=== PATIENT | female | born 1955 | race Caucasian/White ===

== ENCOUNTER 2016-07-16 10:14 | Inpatient (IN) | payer BC ==
--- NOTE | ~2016-07-16 | DS ---
Discharge Summary [facility] [address] [place]. [address] NAME: RAMILA SCANLON : 57 STATUS : ADM IN [facility]#: [id number] AGE: 61 ADM/REG DATE : 07/16/16 MR#: [id number] REPORT SERV DATE: 07/31/16 DICTATED BY: Ace CANCINO DATE: 07/31/16 REPORT STATUS : Draft TRANSCRIBED BY: MODL DATE: 07/31/16 ADMISSION DATE: 07/16/2016 DISCHARGE DATE: 07/31/2016 DIAGNOSES AT THE TIME OF DISCHARGE: Aortic valve endocarditis status post aortic valve replacement, culture equals and Enterococcus, severe chronic obstructive pulmonary disease, prior embolic cerebrovascular accidents, coronary artery disease; acute kidney injury, resolved; superficial thrombus, right arm. ACTIVE CONSULTATIONS: Infectious Disease, Cardiology. PROCEDURE SINCE INTERIM SUMMARY: None. For details of earlier hospital stay, please see interim summary dictated by Dr. Julissa Morrell, done on 07/30/2016. HOSPITAL STAY: On 07/31/2016, the patient has been cleared for discharge by Cardiology, Hospitalist Service, and ID; seen and evaluated by Physical Therapy. The patient was at her functional baseline and stable for discharge home. She is to be stable to discharge to ongoing senior care facility for rehabilitation and antimicrobial therapy. The patient will continue with her current antibiotics in the form of ampicillin 2 g q.4 hours and ceftriaxone 2 g q.12 hours with weekly lab work in the form of CBC and twice weekly lab work in the form of CMP, to be followed by Dr. Villar. The patient will have outpatient followup with Neurology, Cardiology, and Infectious Disease. She will transition today to senior care for ongoing medical therapy. DISCHARGE MEDICATIONS: Will be the above-mentioned antibiotics, vitamin C 1000 b.i.d., aspirin 81 daily, Lipitor 40 daily, arformoterol one inhalation b.i.d., budesonide one inhalation b.i.d., folic acid 1 mg daily, Lasix 40 p.o. q.a.m., melatonin 3 mg at bedtime, multivitamin 1 daily, metoprolol 12.5 b.i.d., Protonix 40 mg p.o. daily, MiraLAX one daily, Seroquel 50 b.i.d., Spiriva 18 mcg daily, Coumadin 4 mg daily with PT and INR on Mondays, Wednesdays, and Fridays, and zinc sulfate 220 mg daily. Further recommendations for ongoing treatment pending review of pending lab data and outpatient followup with Neurology, Cardiology, and Infectious Disease. Please note that it took greater than 30 minutes to review medical record, to reconcile discharge medications and prepare discharge documents. [facility]/ALOK Ace Cancino M.D. / [id number] Discharge Summary [address] [place]. [address] NAME: RAMILA SCANLON ELIZABETH : 57 STATUS : ADM IN [facility]#: [id number] AGE: 61 ADM/REG DATE : 07/16/16 MR#: [id number] REPORT SERV DATE: 07/31/16 DICTATED BY: Ace CANCINO DATE: 07/31/16 REPORT STATUS : Draft TRANSCRIBED BY: ALOK DATE: 07/31/16 CC: Carlton Rodriguez MD
--- NOTE | ~2016-07-16 | CN ---
Consultation Report [facility] [address] [place]. [address] NAME: RAMILA SCANLON : 57 STATUS : ADM IN [facility]#: [id number] AGE: 61 ADM/REG DATE : 07/16/16 MR#: [id number] REPORT SERV DATE: 07/18/16 DICTATED BY: MAXIMILIANO ANTOINE DATE: 07/17/16 REPORT STATUS : Draft TRANSCRIBED BY: MODL DATE: 07/17/16 CARDIOLOGY CONSULTATION DATE OF CONSULTATION: 07/17/2016 REASON FOR CONSULTATION: Abnormal echocardiogram, heart failure. HISTORY OF PRESENT ILLNESS: Ms. Scanlon is a 61-year-old female whom we have been asked to see by the Critical Care Service urgently for the patient recently transferred with findings suggestive of acute heart failure with severe aortic regurgitation. The patient was admitted yesterday on 07/16/2016 after presenting initially with a chief complaint of weakness and shortness of breath. History is currently limited as the patient is intubated, but based upon discussion with the medical team, review of the medical record, and discussion with the family, it seems that the patient developed gradual shortness of breath over a jud-bl-lnwsm-day period. Her initial workup was suggestive of anemia of unclear etiology, and she received a blood transfusion. She was felt to have a COPD exacerbation as she carries this diagnosis for many years and is on home O2 chronically. Her initial ABG demonstrated mixed respiratory failure with a pH of 7.07 and pCO2 of 74. She was initially treated with BiPAP, but due to progressive respiratory distress, she required intubation, and was transferred to the CCU. She did have an echocardiogram earlier today, which demonstrated severe LV dysfunction with severe hypokinesis of the anteroseptal wall and aortic regurgitation with mobile echodensity suggestive of possible endocarditis. Aortic regurgitation quantified as moderate to severe. At the time my evaluation, the patient is hypotensive with systolic in the 90s, currently being supported with levo 2 mcg per minute. She is also on Precedex, but is awake and can respond yes or no questions appropriately. It does not appear that she had any fevers or chills. Her white count was not significantly elevated and blood cultures have yet to be drawn. PAST MEDICAL HISTORY: 1. COPD. 2. Chronic respiratory failure. 3. History of tobacco abuse, cessation in 02/2016 of 45 pack years. 4. History of peripheral artery disease. 5. Generalized anxiety disorder. 6. Heart failure with preserved ejection fraction, now acute systolic heart failure. She has been seen by my group with a recent stress test on 06/07/2016 demonstrating low risk findings. This was a PET study after a previous CT scan demonstrated coronary atherosclerosis. She has not had a heart attack, and her LV function was normal by echocardiogram in 02/2016 when she presented with mild troponin elevation in the inpatient setting. MEDICATIONS: Reviewed per medical record. Consultation Report [facility] [id number] [place]. [address] NAME: RAMILA SCANLON : 57 STATUS : ADM IN [facility]#: [id number] AGE: 61 ADM/REG DATE : 07/16/16 MR#: [id number] REPORT SERV DATE: 07/18/16 DICTATED BY: MAXIMILIANO ANTOINE DATE: 07/17/16 REPORT STATUS : Draft TRANSCRIBED BY: ALOK DATE: 07/17/16 ALLERGIES: DOCUMENTED ALLERGY AND/OR INTOLERANCE TO SULFA AND ASPIRIN. SOCIAL HISTORY: The patient lives alone, but has multiple children, who are involved in her life too and were at bedside. Former smoker. No alcohol or illicit drugs. FAMILY HISTORY: Notable for premature CAD. REVIEW OF SYSTEMS: Limited due to intubated status. PHYSICAL EXAMINATION: VITAL SIGNS: Heart rate 80; blood pressure 90/60, on levo 2 mcg; respiratory rate 16. GENERAL: Overweight female, intubated but awake, does not appear to be in distress, appears calm, and nods head yes or no appropriately. HEENT: Sclerae anicteric. Mucous membranes are moist. NECK: Supple. CARDIOVASCULAR: Diminished S1 and S2. Unable to appreciate any obvious diastolic murmur while the patient is being ventilated. PULMONARY: Diminished inspiratory effort with crackles in the right base. ABDOMEN: Soft, nondistended, nontender. EXTREMITIES: Warm. Pulses are 2+ peripherally. No edema is present. LABORATORY DATA: Reviewed. Admission hemoglobin of 7.2 with followed value of 10.2 after blood transfusion. Initial white blood cell count of 8.2 with followed value of 21.1 after intubation. Procalcitonin 0.57. Sodium 131, most recent value of 133. Creatinine on admission 1.3, most recent value of 2.0. Troponin 0.68 to 0.38 to 0.78 to 2.97. PH 7.14/43/120 on 80%. Most recent value of 7.41/30/178 on 70%. EKG demonstrates sinus tachycardia, heart rate approximately 125, poor R-wave progression across precordial leads, cannot rule out anterior FL. No acute ST-segment abnormalities. Echocardiogram reviewed, notable for severe LV systolic dysfunction, EF 25%, LV dilatation, anterior septal anterior and apical hypocontractility, mild RV hypokinesis, medium size echogenic density extending from the aortic valve, non-coronary cusp representing valve vegetation versus an aortic valve prolapse, moderate to severe aortic regurgitation. IMPRESSION: 1. Respiratory failure, acute on chronic. 2. Aortic regurgitation, moderate to severe, likely acute. 3. Heart failure, systolic, acute with clinical features suggest consistent with cardiogenic shock requiring pressors. 4. Possible occipital cerebrovascular accident based on head CT. 5. Acute kidney injury. 6. Myocardial infarction, suspect type 2 injury related to the above. Consultation Report [address] [address] NAME: RAMILA SCANLON ELIZABETH : 57 STATUS : ADM IN [facility]#: [id number] AGE: 61 ADM/REG DATE : 07/16/16 MR#: [id number] REPORT SERV DATE: 07/18/16 DICTATED BY: MAXIMILIANO ANTOINE DATE: 07/17/16 REPORT STATUS : Draft TRANSCRIBED BY: ALOK DATE: 07/17/16 RECOMMENDATIONS: The patient's decompensation is most likely related to her aortic valve regurgitation, which is clearly new from her prior echocardiogram and may be related to either aortic valve endocarditis or possibly aortic dissection. In order to clarify, we have requested a stat CT of her chest to rule out dissection. Blood cultures are being obtained. She is being supported with low-dose levo and ventilatory support. At this point, mechanism of aortic valve regurgitation is not entirely clear, but anticipate need for operative intervention given severity and degree of decompensation. Further recommendations pending initial clinical course. [facility]/ALOK Maximiliano Antoine MD / [id number] CC: Carlton Taylor MD
--- NOTE | ~2016-07-16 | CN ---
Consultation Report [facility] [address] [place]. [address] NAME: RAMILA SCANLON : 57 STATUS : ADM IN [facility]#: [id number] AGE: 61 ADM/REG DATE : 07/16/16 MR#: [id number] REPORT SERV DATE: 07/17/16 DICTATED BY: TERESA BARAHONA DATE: 07/17/16 REPORT STATUS : Draft TRANSCRIBED BY: ALOK DATE: 07/17/16 CRITICAL CARE NOTE DATE OF CONSULTATION: 07/17/2016 TIME: Care was initiated on this patient was 0827 hours to 0945 hours. HISTORY OF PRESENT ILLNESS: This is a 61-year-old patient who was admitted to the Hospitalist Service last night with a chief complaint of weakness and shortness of breath. The patient was admitted to the floor. She was anemic and received 2 units of blood. She was on bronchodilator protocol and received a Brovana treatment this morning after which she got up to go to the bathroom and then came back extremely tachycardic, short of breath. A Code Blue was called. However, the patient had a pulse but was in respiratory distress. The patient was evaluated on the floor and had a heart rate in the 160s, blood pressure 161/71, respiratory rate was 30, O2 saturation was 95% on nasal cannula. She had an ABG that showed a pH of 7.07, pCO2 of 74, pO2 of 116, bicarbonate of 21, 96%. Hemoglobin was 11, hematocrit was 35. Sodium was 128, potassium was 4.9, glucose 172. BiPAP was tried and the patient was transferred to the CCU but continued to be in respiratory distress and required intubation and mechanical ventilation. ALLERGIES: SULFA AND ASPIRIN. HOME MEDICATIONS: DuoNeb, Brovana, and Pulmicort. PAST MEDICAL HISTORY: Significant for severe COPD, on home O2. She has history of smoking and stopped smoking last February, smoked for about 45 pack years. She has previous history of pneumonia, ML, PAD with CAD, generalized anxiety disorder, chronic diastolic heart failure, and history of oropharyngeal candidiasis. She has been intubated before. PAST SURGICAL HISTORY: She is status post hysterectomy, cholecystectomy, and a normal colonoscopy in 2012. SOCIAL HISTORY: Lives in [place], longtime smoker, apparently quit in February, minimal alcohol intake. No illicit drug use. FAMILY HISTORY: Significant for pneumonia, breast cancer. REVIEW OF SYSTEMS: Could not be obtained from the patient. PHYSICAL EXAMINATION: VITAL SIGNS: As above. The patient was in extremis, prolonged respiratory phase using accessory muscles. SKIN: Cool to touch. She was not diaphoretic and was not complaining of chest pain. Consultation Report [facility] [address] [place]. [address] NAME: RAMILA SCANLON : 57 STATUS : ADM IN [facility]#: [id number] AGE: 61 ADM/REG DATE : 07/16/16 MR#: [id number] REPORT SERV DATE: 07/17/16 DICTATED BY: TERESA BARAHONA DATE: 07/17/16 REPORT STATUS : Draft TRANSCRIBED BY: ALOK DATE: 07/17/16 HEENT: Head is atraumatic, normocephalic. Pupils are sluggishly reactive. Sclerae anicteric. Conjunctivae are pink. Nasal mucosa is within normal limits. Oral mucosa is moist. NECK: Supple without JVD, lymphadenopathy, or thyromegaly. LUNGS: Prolonged expiratory phase. Little of any air movement. CARDIAC: Reveals regular rate and rhythm. ABDOMEN: Mildly distended. Bowel sounds are diminished. No organosplenomegaly is appreciated. There is no Solis. RECTAL: Deferred. GENITAL: Deferred. EXTREMITIES: Without cyanosis or clubbing. There is trace edema. No focal deficits were seen on neuro exam. ASSESSMENT AND PLAN: This is a 61-year-old patient with known history of severe chronic obstructive pulmonary disease, previous intubation for chronic obstructive pulmonary disease exacerbation comes in with anemia that apparently has not been adequately explained since her stool was heme negative. She also has a history of diastolic dysfunction and has been seen by Cardiology before. 1. Exacerbation of chronic obstructive pulmonary disease. Intubation, sputum Gram stain and culture, continue bronchodilator protocol, and steroids, and Levaquin. 2. Peripheral vascular disease, reportedly in 2016. This is stable. 3. Diastolic dysfunction. Continue cardiac enzymes. An echo to be obtained today. Obtain cardiac consult if needed. 4. Anemia. Heme test stool. Follow serial H and H. Place the patient on Protonix 40 mg IV q.12. May need GI consult if we still have issues with anemia. She does have other workup pending as for the Hospitalist Service including a Stefano and a haptoglobin and reticulocyte count and peripheral smear. 5. History of acute kidney injury. Troponin slightly elevated at 0.38. This is trending downward but we will continue to follow. Suspect type 2 demand but we will continue to follow closely. 6. Swabs flu patient for influenza if not already done. 7. Tachycardia. Repeat EKG and initiate Cardizem and possibly even amiodarone if needed. 8. Noted to have metabolic acidosis. We will check a lactic acid level and repeat all lab work, CBC, mag, phos now. The patient has at least a tendency to possibly develop acute kidney injury. So we will need to follow her creatinine closely since it has already increased from 1.3 to 1.5. May need to be seen by Nephrology. Total critical care time was from 0827 hours to 0945 hours for a total of 78 minutes of critical care time. /ALOK Teresa Barahona M.D. Consultation Report [address] [address] NAME: RAMILA SCANLON : 57 STATUS : ADM IN [facility]#: [id number] AGE: 61 ADM/REG DATE : 07/16/16 MR#: [id number] REPORT SERV DATE: 07/17/16 DICTATED BY: TERESA BARAHONA DATE: 07/17/16 REPORT STATUS : Draft TRANSCRIBED BY: MODL DATE: 07/17/16 / [id number] CC: Santi Chan M.D.
--- NOTE | ~2016-07-16 | HP ---
History And Physical [place] [address] [facility] [place]. [address] NAME: RAMILA SCANLON : 57 STATUS : ADM IN [facility]#: [id number] AGE: 61 ADM/REG DATE : 07/16/16 MR#: [id number] REPORT SERV DATE: 07/16/16 DICTATED BY: NERY DERAS DATE: 07/16/16 REPORT STATUS : Draft TRANSCRIBED BY: MODL DATE: 07/16/16 DATE OF ADMISSION: 07/16/2016 REASON FOR ADMISSION: Shortness of breath, lethargy, and productive cough last week. PRIMARY CARE DOCTOR: Dr. Nazario. TAPE SEWING MACHINE OPERATOR: Apparently, the patient is changing from one to another, unclear. HISTORY OF PRESENT ILLNESS: This is a 61-year-old female with known history of obesity and COPD, on 3 L oxygen dependence. Recently stopped smoking last February, smoked for about at least 45 pack years. Known multiple history of COPD exacerbation, was even intubated in the past, known history of pneumonia, ML, PAD with CAD, generalized anxiety disorder, history of chronic diastolic heart failure, and history of oropharyngeal candidiasis. The patient's surgical history of hysterectomy, cholecystectomy; colonoscopy apparently 2 years ago, this was normal. The patient comes in episode of progressive shortness of breath. No orthopnea, though no PND. Productive cough, yellow-green sputum. Positive wheezing. The patient states she has only been taking her nebulized DuoNeb. Apparently not taking Brovana or budesonide. The patient states she has some presyncope when she gets up quickly from a lying to standing position. She states she denies any melena, hematochezia, or hematemesis. Positive chills. No fevers. Positive nausea. No vomiting. Positive diarrhea though. She has not had any antibiotics last month. No chest pain, no chest pressure. Positive shortness of breath. Hemoglobin 7.2 and MCV of 67. No family history of any hemoglobinopathies. PAST MEDICAL HISTORY: See above. PAST SURGICAL HISTORY: See above. ALLERGIES: SULFA APPEARS TO BE TRUE ALLERGY WITH SWELLING; ASPIRIN UNCLEAR IF THAT IS TRUE, SAYS IT CAUSES UPSET STOMACH. FAMILY HISTORY: Pneumonia, unfortunately killed her father at age of 67. Mother had breast cancer of unknown age. HOME MEDICATIONS: See MAR. Continue what is relevant. REVIEW OF SYSTEMS: Done, see HPI. Otherwise, negative. OBJECTIVE: VITAL SIGNS: They are currently 111/40, when I was in there she was 120 History And Physical [place] [id number] [facility] [place]. [address] NAME: RAMILA SCANLON : 57 STATUS : ADM IN PAT#: [id number] AGE: 61 ADM/REG DATE : 07/16/16 MR#: [id number] REPORT SERV DATE: 07/16/16 DICTATED BY: NERY DERAS DATE: 07/16/16 REPORT STATUS : Draft TRANSCRIBED BY: MODL DATE: 07/16/16 systolic, temp 98.3, pulse 87, respirations 18, and she is 97% on 3 L, it seems to be her baseline. GENERAL: No acute distress. HEENT: PERRLA. No scleral icterus. CARDIOVASCULAR: Regular rate and rhythm. No murmur. RESPIRATORY: Decreased breath sounds throughout. Some very minimal bibasilar crackles. ABDOMEN: Nontender, nondistended. Positive bowel sounds. EXTREMITIES: She does have about 1+ pitting edema, more on the right greater than left lower extremities. NEUROLOGIC: GCS 15. A and O x4/4. PSYCHIATRY: Normal affect and mood. LABORATORY DATA: White count 8.2; hemoglobin 7.2; MCV 67, baseline is likely around 9-10; hemoglobin platelets. Potassium , bicarb 24, creatinine 1.3, BUN 8, sodium 131, and sugar 114. ABG 7.52/32/92 on 32%. Stool guaiac that was negative. Chest x-ray, personally looking at poor film, it is underpenetrated, but seems to show bibasilar alveolar infiltration. She has an EKG that is got artifact throughout, but needs a repeat, possible accelerated junctional. We will need to repeat, evaluate the P waves, there is significant amount of artifact. ASSESSMENT: 1. Acute on chronic hypoxic respiratory failure due to chronic obstructive pulmonary disease. 2. Chronic obstructive pulmonary disease, acute exacerbation, 3/ GOLD criteria. 3. Symptomatic anemia of unknown etiology. It is microcytic. 4. Acute kidney injury. 5. History of peripheral artery disease. PLAN: We will go ahead and admit this patient to Dr. Chan's service. I will also go ahead, and given her SIRS criteria being met, panculture her, IV Levaquin thereafter. Like to get a haptoglobin, as well as Stefano, as well as an LDH, peripheral smear, reticulocyte count prior to transfusion, and then give two PRBCs, 7.2 hemoglobin. Guaiac currently is negative. I will need to repeat that. PPI IV b.i.d. CT abdomen and pelvis, rule out any type of retroperitoneal bleed, but unlikely given no abdominal pain. Placed on Spiriva, Brovana, budesonide; Lipitor for PAD. Apparently at this time, cannot receive any aspirin, antiplatelets, antithrombotics until guaiac is definitively negative x2. As a result, placed on SCDs. Repeat EKG. We will also go ahead and place her on LR. If her guaiac continues to be negative, possible outpatient endoscopy and colonoscopy. If that is negative, consider possible bone marrow biopsy. Defer to Dr. Chan. All questions were answered. It took well over 60 minutes to do reference [employer] and [employer]. WST/MODL Nery Deras DO History And Physical [address] [address] NAME: RAMILA SCANLON : 57 STATUS : ADM IN PAT#: [id number] AGE: 61 ADM/REG DATE : 07/16/16 MR#: [id number] REPORT SERV DATE: 07/16/16 DICTATED BY: NERY DERAS DATE: 07/16/16 REPORT STATUS : Draft TRANSCRIBED BY: MODL DATE: 07/16/16 / [id number]
--- NOTE | ~2016-07-16 | OP ---
Record Of Operation [facility] [address] [place] [address] NAME: RAMILA SCANLON : 57 STATUS : ADM IN [facility]#: [id number] AGE: 61 ADM/REG DATE : 07/16/16 MR#: [id number] REPORT SERV DATE: 07/17/16 DICTATED BY: TERESA BARAHONA DATE: 07/17/16 REPORT STATUS : Draft TRANSCRIBED BY: MODL DATE: 07/17/16 DATE OF PROCEDURE: 07/17/2016 PROCEDURE: Intubation. REASON: Acute hypercapnic hypoxic respiratory failure, severe COPD. Patient failed BiPAP and still continues to be using accessory muscles. This is emergent situation and so the patient was intubated after being sedated with 20 mg of IV etomidate and 5 mL of IV Diprivan. She was pre-oxygenated with 100% oxygen and monitored throughout the entire procedure. A #4 blade was used for intubation and 7.5 endotracheal tube was placed on the first attempt. Anatomy of the vocal cords appeared to be normal. CO2 sensor changed appropriate color from blue to yellow and bilateral breath sounds were heard. /ALOK Teresa Barahona M.D. / [id number] CC: Santi Chan M.D.
--- NOTE | ~2016-07-16 | TEE ---
Transesophageal Echocardiogram [facility] [address]. [address] NAME: RAMILA SCANLON : 57 STATUS : ADM IN [facility]#: [id number] AGE: 61 ADM/REG DATE : 07/16/16 MR#: [id number] REPORT SERV DATE: 07/18/16 DICTATED BY: JOSE DOSS DATE: 07/18/16 REPORT STATUS : Draft TRANSCRIBED BY: MODL DATE: 07/18/16 INDICATION: This is a 61-year-old female with severe aortic regurgitation on transthoracic echocardiogram and cardiogenic shock to rule out possible endocarditis. CT of the chest, negative for dissection. Informed consent was obtained, signed on the chart, prior to proceeding a time-out was performed. Sedation was per Anesthesia, and esophageal intubation was without difficulty. TECH: MT. The overall quality of study was good. FINDINGS: VALVES: 1. Aortic valve morphology was trileaflet. The aortic valve leaflets were thickened with adequate mobility. There was a large complex independently mobile echo density spanning the left coronary and noncoronary leaflets. This prolapses from the aortic root to the LVOT end-diastole. It measures greater than equal to 1.5 cm in multiple views. There was no perivalvular abscess seen. There was severe aortic regurgitation. There was complete color Doppler filling of the LVOT end-diastole. There was preclosure of the anterior mitral leaflet. There was holodiastolic flow reversal exceeding 40 cm/second in the thoracic aorta. 2. The mitral valve morphology was normal with fully mobile leaflets. There were no valvular vegetations seen. There was mild mitral regurgitation. 3. The pulmonic valve was grossly normal. There was trace pulmonic regurgitation. There were no valvular vegetations seen. 4. The tricuspid valve morphology was normal with fully mobile leaflets. There was mild tricuspid regurgitation. There were no valvular vegetations seen. CHAMBERS: 1. Left ventricle appeared mildly enlarged. The left ventricular ejection fraction appeared low normal, estimated 50%. There were no regional wall motion abnormalities seen. 2. The left atrium appeared mildly enlarged. There was no mass thrombus seen. 3. The right ventricle appeared grossly normal in size and systolic function. 4. The right atrium appeared grossly normal to mildly enlarged. There was no mass thrombus seen. Superior and inferior vena cava appeared normal. OTHER: The interatrial septum was examined with multiple angulations and appeared intact by visual inspection with no evidence of interatrial shunt seen by color Doppler. There was no pericardial effusion. There was a small pleural effusion noted. COMPLICATIONS: None. CONCLUSION: 1. DEFINITIVE AORTIC VALVE ENDOCARDITIS WITH A LARGE COMPLEX AND INDEPENDENTLY MOBILE ECHO Transesophageal Echocardiogram [address] [address] NAME: RAMILA SCANLON : 57 STATUS : ADM IN PAT#: [id number] AGE: 61 ADM/REG DATE : 07/16/16 MR#: [id number] REPORT SERV DATE: 07/18/16 DICTATED BY: JOSE DOSS. DATE: 07/18/16 REPORT STATUS : Draft TRANSCRIBED BY: MODL DATE: 07/18/16 DENSITY, DESCRIBED ABOVE. NO VALVULAR ABSCESS SEEN. SEVERE AORTIC REGURGITATION BY MULTIPLE ECHOCARDIOGRAPHIC CRITERIA. 2. MILD MITRAL, PULMONIC, AND TRICUSPID REGURGITATION WITHOUT VEGETATIONS. 3. MILDLY ENLARGED LV WITH LOW NORMAL SYSTOLIC FUNCTION, EF OF 50%. AEA/MODL Jose Doss M.D. / [id number] CC: Carlton Taylor MD
--- NOTE | ~2016-07-16 | IDS ---
Interim Discharge Summary [facility] [address] [place]. [address] NAME: RAMILA SCANLON : 57 STATUS : ADM IN [facility]#: [id number] AGE: 61 ADM/REG DATE : 07/16/16 MR#: [id number] REPORT SERV DATE: 07/26/16 DICTATED BY: MARVIN SAGE IV DATE: 07/26/16 REPORT STATUS : Draft TRANSCRIBED BY: MODPatsy DATE: 07/26/16 ADMISSION DATE: 07/16/2016 DISCHARGE DATE: DATE OF TRANSFER: To the floor 07/26/2016. ADMITTING DIAGNOSES: 1. Acute hypercapnic respiratory failure, resolved. 2. Enterococcus faecalis aortic endocarditis, now status post repair. 3. Severe chronic obstructive pulmonary disease, on bronchodilator medications. 4. 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 5. Acute kidney injury, resolved. 6. Electrolyte abnormalities, improving. 7. Coronary artery disease, nonactive. 8. Peripheral arterial disease, nonactive. CONSULTANTS: Include Critical Care Medicine, who accepted the patient on the ; Infectious Disease, Cardiothoracic Surgery, [facility], all on the ; and Neurology also on the 07/17, who all continue to follow the patient. PROCEDURES: 1. The patient underwent a CT of the brain on the 07/17 demonstrating questionable acute infarcts that with motion artifact. 2. MRI of the brain demonstrating multifocal acute ischemic infarcts. 3. A chest CT scan on demonstrating no evidence of a dissection with severe emphysematous changes. 4. Echocardiogram on the demonstrating concern about endocarditis with a severe aortic insufficiency. 5. She had JAIRO on the confirming severe aortic insufficiency with a large vegetative lesion on the valve with no abscess. 6. Underwent carotid ultrasound demonstrating no significant obstructive disease on the as well. The patient underwent intubation on the with extubation on the and had an aortic valve replacement on the . MEDICATIONS: At the time of transfer include Brovana unit dose twice a day, Pulmicort 1 mg twice a day, folic acid 1 mg daily, aspirin 81 mg daily, ampicillin 2 g q.4 hours, Lasix 20 mg times single dose, Lipitor 40 mg daily, Lopressor 12.5 mg twice a day, melatonin 3 mg at bedtime, nitroglycerin paste 1 inch q.6 hours, level 2 insulin sliding scale, Orazinc 220 mg daily, Protonix 40 mg p.o. daily, Proventil q.4 hours while awake and q.2 hours as needed, Rocephin 2 g q.12 hours, Senokot two tabs twice a day, Seroquel 50 mg twice a day, Spiriva one capsule daily, and vitamin C daily. HOSPITAL COURSE: The patient was initially admitted to the hospitalist service on 07/16 with presumed COPD exacerbation. The patient had progressive worsening of her respiratory status with hypercapnia for which she was transferred to the ceo na service under Dr. Sally Barahona. She was initially tried on BiPAP, though failed and underwent intubation. She had Interim Discharge Summary [place] [id number] [facility] [place]. [address] NAME: RAMILA SCANLON : 57 STATUS : ADM IN [facility]#: [id number] AGE: 61 ADM/REG DATE : 07/16/16 MR#: [id number] REPORT SERV DATE: 07/26/16 DICTATED BY: MARVIN SAGE IV DATE: 07/26/16 REPORT STATUS : Draft TRANSCRIBED BY: ALOK DATE: 07/26/16 blood cultures from admission, which were positive for Enterococcus faecalis. Because of altered mental status, a head CT scan was obtained, which demonstrated concern about infarcts which were concerning as multiple small embolic infarcts on MRI. An echocardiogram was obtained, which demonstrated AI with concern about a vegetative lesion on the valve. This was confirmed the following day on a JAIRO. Cardiothoracic Surgery was consulted. ID was consulted as well and the patient was placed on antibiotics for endocarditis. She remained on the ventilator with supportive care and bronchodilator medications. She had initially required vasopressor agents, which were able to be weaned and discontinued. The cardiothoracic surgeons felt that the patient was a candidate for aortic valve replacement, which was performed on the . She initially had acute kidney injury with her decompensation, however, that quickly improved with supportive care. She, post valve replacement, had progressive clinical improvement. She was successfully extubated on the . She was kept on her bronchodilator medications, underwent a swallow evaluation, which she passed and is clinically doing very well. Physical therapy is working with her and she remains quite weak. All services felt that she was stable for transfer to the floor, which has been ordered with hospitalist to resume primary care. ROBERT/ALOK Marvin Sage IV, M.D. / [id number] CC: Gerber Harris DO
--- NOTE | ~2016-07-16 | CN ---
Consultation Report [facility] [address] [place]. [address] NAME: RAMILA SCANLON : 57 STATUS : ADM IN [facility]#: [id number] AGE: 61 ADM/REG DATE : 07/16/16 MR#: [id number] REPORT SERV DATE: 07/17/16 DICTATED BY: DATE: REPORT STATUS : Draft TRANSCRIBED BY: MODL DATE: 07/17/16 NEUROLOGY CONSULTATION DATE OF CONSULTATION: 07/17/2016 REASON FOR CONSULT: Encephalopathy, possible stroke. HISTORY OF PRESENT ILLNESS: This is a 61-year-old female who presented to [facility] on 07/16/2016, secondary to shortness of breath as well as lethargic and productive cough. The patient was noted to have difficulties with respiration, with the patient noted to be tachycardic on the morning of 07/17/2016, was status post intubation. After intubation, the patient was on sedation and when shortly became unresponsive, sedation was turned off and stat CT scan was obtained after sedation was off, gradually she became responsive and is following commands and answering questions with head gestures. Afterwards, the patient was noted to be moving all extremities. However, CT scan of the head is concerning for possible left parietal lobe hypoattenuation and possible stroke. The patient prior to the hospitalization was not noted to have any focal deficits and was ambulating without difficulties, and was not noted to have any other recent illness. PAST MEDICAL HISTORY: Significant for history of COPD on home oxygen with history of tobacco usage, quit in last February. The patient also was noted to have a history of previous pneumonia, acute kidney injury, peripheral artery disease with coronary artery disease as well as generalized anxiety disorder, history of diastolic heart failure, history of oropharyngeal candidiasis. The patient apparently has been intubated before in the past. ALLERGIES: THE PATIENT REPORTS ALLERGY TO SULFA WELL ASPIRIN. FAMILY HISTORY: The patient was noted to have a family history significant for pneumonia as well as breast cancer. REVIEW OF SYSTEMS: Unfortunately, it is unable to be obtained at time of evaluation secondary to patient's intubation status. CURRENT MEDICATIONS: Consist of Bactroban as well as DuoNeb, Lipitor, NovoLog, Protonix, Solu-Medrol. The patient was also noted to have fentanyl drip in the past and that was turned off. PHYSICAL EXAMINATION: VITAL SIGNS: Overnight, the patient was noted to have vital signs with T-max of 98.0, heart rate of 77-157 with respirations of 16 to 33, blood pressure of 93 to 120/51-59. GENERAL: The patient is well developed, well nourished, in no acute distress. CARDIOVASCULAR: Regular rate and rhythm. No carotid bruits were otherwise auscultated. PULMONARY: Clear to auscultation bilaterally. Consultation Report [place] [id number] [facility] [place]. [address] NAME: RAMILA SCANLON : 57 STATUS : ADM IN PAT#: [id number] AGE: 61 ADM/REG DATE : 07/16/16 MR#: [id number] REPORT SERV DATE: 07/17/16 DICTATED BY: DATE: REPORT STATUS : Draft TRANSCRIBED BY: MODPatsy DATE: 07/17/16 NEUROLOGICAL: Generally, the patient is alert, is intubated and is able to answer question with yes or no head shakes. Otherwise, follow simple and 2-step commands at the time of evaluation. The patient is currently not on sedation. Cranial nerves II through XII: Pupils equal, round, and reactive to light. Extraocular eye movement was noted to be intact with intact blink to threat response. The patient reports symmetrical facial sensation, was noted to have apparent symmetrical upper facial expression. The patient is able to move bilateral upper and lower extremities at the time of evaluation on commands and reports symmetrical sensation in bilateral upper and lower extremities. Deep tendon reflex was otherwise 1+ throughout. Gait and cerebellar examination was not evaluated secondary to patient's intubation status and mental status. LABORATORY STUDIES: Demonstrated white blood cell count of 21.1, hemoglobin of 10.3, hematocrit of 32.1, and platelet count of 180. INR of 1.3. Chemistry panel: Sodium of 133, potassium of 3.8, chloride of 98, bicarb of 21, BUN of 22, creatinine of 2.02, glucose of 145, calcium of 8.5. The patient was noted to have a magnesium of 1.8 on earlier lab draw today with serum ammonia mildly elevated at 37. The patient otherwise was noted to have troponin of 2.97. ABG at the time of evaluation with pH of 7.41, pCO2 of 30, PO2 of 178, bicarb of 18.2, O2 saturation of 98.9. Urinalysis demonstrated negative leukocyte esterase, negative nitrite. CT scan of the brain demonstrated possible stroke in the left parietal area given hypoattenuation. IMPRESSION: Encephalopathy, likely secondary to medication side effect as the patient's encephalopathy was noted to be resolved after sedation was turned off. However, the patient was noted to have a CT scan of the brain concerning for possible left parietal stroke. The patient does have echocardiogram performed today with severe decreased systolic function and aortic valve abnormality concerning for possible vegetation, question of endocarditis. CTA of the chest demonstrated no acute aortic dissection. Cardiology has been consulted for possible JAIRO. We are recommending MRI of the brain as well as carotid Doppler study. We will also check fasting lipid panel with morning labs. The patient was noted to have a hemoglobin A1c of 5.4. Otherwise, we will have the patient be on Plavix as the patient is allergic to aspirin. We are recommending continue Lipitor. RECOMMENDATION: 1. MRI of the brain without contrast. 2. JAIRO as per sas programmer remote. 3. Carotid Doppler study. 4. Fasting lipid panel with morning labs. 5. Plavix 75 mg p.o. daily if okay with Cardiology and Critical Care, as the patient was noted to be allergic to aspirin. 6. Continue Lipitor. [place]/MODL Consultation Report [place] [id number] [facility] [place]. [address] NAME: RAMILA SCANLON : 57 STATUS : ADM IN [facility]#: [id number] AGE: 61 ADM/REG DATE : 07/16/16 MR#: [id number] REPORT SERV DATE: 07/17/16 DICTATED BY: DATE: REPORT STATUS : Draft TRANSCRIBED BY: MODL DATE: 07/17/16 Eren Singer MD / [id number] CC: Carlton Taylor MD
--- NOTE | ~2016-07-16 | OP ---
Record Of Operation [address] [place]. [address] NAME: RAMILA SCANLON : 57 STATUS : ADM IN [facility]#: [id number] AGE: 61 ADM/REG DATE : 07/16/16 MR#: [id number] REPORT SERV DATE: 07/20/16 DICTATED BY: ZEESHAN RED DATE: 07/20/16 REPORT STATUS : Draft TRANSCRIBED BY: MODL DATE: 07/20/16 DATE OF PROCEDURE: 07/20/2016 ATTENDING PHYSICIAN: Dr. Zeeshan Red. REFERRING PHYSICIANS: Dr. Maximiliano Antoine and Dr. Santi Chan. SURGEON: Dr. Zeeshan Red. ASSISTANTS: Janie Coyle and Casey Garner. PRIMARY PROFESSIONAL HOUSING CONSULTANT: Janie Coyle. ANESTHESIOLOGIST: Dr. Ambrocio Morley. PREOPERATIVE DIAGNOSES: 1. Acute bacterial endocarditis of the aortic valve. 2. Severe aortic regurgitation. 3. COPD. 4. Hypertension. 5. Prior tobacco abuse. 6. Respiratory failure. 7. Acute kidney injury. 8. Resolving sepsis. POSTOPERATIVE DIAGNOSES: 1. Acute bacterial endocarditis of the aortic valve. 2. Severe aortic regurgitation. 3. COPD. 4. Hypertension. 5. Prior tobacco abuse. 6. Respiratory failure. 7. Acute kidney injury. 8. Resolving sepsis. 9. Multiple embolic CVAs. OPERATION PROCEDURE PERFORMED: 1. Median sternotomy. 2. Extracorporeal circulation. 3. Aortic valve replacement with 21 mm MagnaEase Kim-Pollack bovine pericardial valve. 4. JAIRO. 5. Prevena dressing placement. 6. Multiple embolic CVAs. COMPLICATIONS: None. Record Of Operation [address] [place]. [address] NAME: RAMILA SCANLON : 57 STATUS : ADM IN [facility]#: [id number] AGE: 61 ADM/REG DATE : 07/16/16 MR#: [id number] REPORT SERV DATE: 07/20/16 DICTATED BY: ZEESHAN RED DATE: 07/20/16 REPORT STATUS : Draft TRANSCRIBED BY: MODL DATE: 07/20/16 TUBES AND DRAINS: Sibnrs-yclj-Ncknvn Irwin to posterior mediastinal space 32-Bruneian straight mediastinal chest tube under the sternum. Atrial and ventricular wires. POSTOPERATIVE CONDITION: Critically stable to CVICU. The patient was weaned from cardiopulmonary bypass on 5 of dobutamine. A transesophageal echo showed preprocedure showed wide open AI, large vegetation which was mobile with mild MR and preserved wall motion. Postoperative showed a well-seated aortic valve with no perivalvular leak with a normal EF with mild MR. Intraoperative anatomic findings with trileaflet valve. There was a large vegetation on the left cusp. There was a perforation along the right cusp. The infection involved all three leaflets with the heaviest along the leading edge of the left cusp and at the left non-commissure. All infected leaflet tissue was widely debrided. The annulus was widely debrided of what appeared to be infected material and was treated with topical rifampin. Valve was sized to a 21 mm MagnaEase valve. Fifteen pledgeted sutures were placed to position the valve in a supra-annular position. The valve was lowered into position and anchored using 15 cor knots. INDICATIONS FOR PROCEDURE: Ms. Scanlon is a 61-year-old female with unfortunate history of severe COPD, prior history of respiratory failure, and severe tobacco use who presented to the hospital and ultimately was found to have wide-open AI with large vegetation and multiple embolic CVAs and was found to have embolic stroke as well as large vegetation. She was stabilized and underwent chest CT to evaluate her for potential aortic dissection secondary to the wide-open AI which revealed no dissection. There was a large mobile vegetation on AJIRO which after consultation with the primary clinic physician director and several of his colleagues, we felt that the risk of embolization from this vegetation during heart catheterization was too high and that it was appropriate to avoid a heart catheterization and go to the operating room to operate without the heart cath. The patient after discussions with Neurology Service, it was determined that the approximate risk of embolization was about the same as the risk of conversion to her embolic strokes of conversion to hemorrhagic. Taking all this into consideration with her severe acute AI, I felt that it was appropriate for her to be operated on earlier rather than later. The risks, benefits, and alternatives were discussed with the family including but not limited to, bleeding, infection, stroke, , heart attack, need for future operations. Her STS calculated mortality of 16.9% and her any morbidity mortality was 64%, were discussed with the family and all questions were answered. The patient was taken to the operating room. DETAILS OF THE PROCEDURE: The patient was brought to the operating room, placed supine on the operating room table. After satisfactory induction of general endotracheal anesthesia, she was prepped and draped in the usual sterile fashion. A median sternotomy was performed. Skin and subcutaneous tissues were divided. Clavipectoral fascia was divided. The sternum was divided in the midline using sternal saw. A sternal retractor was placed. Thymic tissue was divided in the midline. Pericardium was opened in the midline along the diaphragm. Pericardial well was created. Systemic heparinization was achieved. Aortic cannulation was achieved at the base of the innominate artery through dual pursestring. Right atrial appendage was cannulated through a single pursestring with a dual stage venous cannula. Antegrade root vent cardioplegia tack was placed. A self inflating retrograde coronary sinus catheter was placed through a pursestring in the right atrial side wall. Record Of Operation [facility] [address] [facility] [place]. [address] NAME: RAMILA SCANLON : 57 STATUS : ADM IN [facility]#: [id number] AGE: 61 ADM/REG DATE : 07/16/16 MR#: [id number] REPORT SERV DATE: 07/20/16 DICTATED BY: ZEESHAN RED DATE: 07/20/16 REPORT STATUS : Draft TRANSCRIBED BY: ALOK DATE: 07/20/16 Cardiopulmonary bypass was initiated after documentation of an adequate ACT. The right superior pulmonary vent was placed through a pursestring in the right superior pulmonary vein. Cross-clamp was brought up. The heart was arrested with cold antegrade cardioplegia of Custodiol, switching to retrograde and then after opening the aorta down the ostia of the coronaries. The coronary ostia were free of disease. It did not appear to have any calcific disease. Courses of the coronaries were hidden by epicardial fat but were palpated, did not feel to have heavy calcific disease. After completion of cardioplegia, the aorta was retracted and the aortic valve was inspected. The findings were as dictated in the findings. The valve was excised. All annular tissue was debrided. Valve tissue was sent for Gram stain and culture. The area was treated with rifampin, sized to a 21 mm valve, 15 pledgeted sutures were placed in the supraannular position. The sutures were passed through the valve sewing ring. The valve was lowered into position and anchored using 15 cor knots, it was inspected. It was felt to be well seated without any gaps. The aorta was then closed in 2 layers in a routine fashion using pledgeted at the corners 4-0 Prolene. Vigorous de-airing maneuvers were performed. The cross-clamp was removed. The atrial and ventricular pacing wires were placed. Dobutamine was started during the closure of the aortotomy. The patient was able to be weaned from cardiopulmonary bypass without incident. Protamine was administered. She was decannulated. All cannulation sites were oversewn with 4-0 Prolene. Hemostasis was obtained. A 32-Bruneian chest tube was placed under the sternum and a 24-Bruneian Irwin was placed in the posterior pericardial space. The sternal wires were then used to close the sternum. Some of these were double wires. The clavipectoral fascia was reapproximated using running #1 StrataFix. Subcutaneous tissues closed using running 1 StrataFix. The skin and subcutaneous tissue was closed using 2-0 Quill and a Prevena dressing was placed. She was then transferred to the CVICU in critical, stable condition. C/MODL Zeeshan Red MD / [id number] CC: DO Santi Higuera M.D. Vinay Deep Madan, MD
--- NOTE | ~2016-07-16 | CN ---
Consultation Report [facility] [address] [place]. [address] NAME: RAMILA SCANLON : 57 STATUS : ADM IN PAT#: [id number] AGE: 61 ADM/REG DATE : 07/16/16 MR#: [id number] REPORT SERV DATE: 07/18/16 DICTATED BY: ZEESHAN RED DATE: 07/18/16 REPORT STATUS : Draft TRANSCRIBED BY: MODL DATE: 07/18/16 CONSULTATION NOTE. DATE OF CONSULTATION: 07/18/2016 REASON FOR CONSULTATION: Aortic valve endocarditis. BRIEF HISTORY: This is a 61-year-old white female, who has a history of COPD on home oxygen at 3 L nasal cannula, diastolic heart dysfunction, anxiety, and chronic shortness of breath. She presented to the emergency room on 07/16/2016, with weakness and shortness of breath, and eventually was placed on BiPAP. She had progressive respiratory failure with a mixed respiratory component on her ABG, requiring intubation. She underwent further workup with a CT scan, which had concerns of possible CVA. She underwent echocardiogram, which showed a possible aortic valve endocarditis with severe aortic insufficiency and moderate to severe aortic stenosis. There is also concern of a possible aortic dissection, so she was taken to the CT scanner despite an elevated creatinine. CT did not show any acute aortic injury. She was taken this morning for a transesophageal echocardiogram, which showed a complex mobile density on the aortic valve without a valvular abscess, severe aortic regurgitation, but improved left ventricular ejection fraction of 50%. She was also taken for an MRI of the brain, which showed multifocal small acute ischemic infarcts, left basal ganglia extending into the wright radiata and within the left cerebral hemisphere. Blood cultures were also obtained, which showed 2 of 2 to be positive for gram-positive cocci. We were asked to see her to evaluate her for possible aortic valve replacement. PAST MEDICAL HISTORY: Significant for COPD on home oxygen at 3 L, obesity, a 45-pack year tobacco abuse having quit in February 2016, previous pneumonia, previous acute kidney injury, generalized anxiety disorder, diastolic heart failure, previous intubations in the past for COPD exacerbations. ALLERGIES: INCLUDE SULFA WHICH CAUSES HIVES AND A RASH WELL ASPIRIN, WHICH CAUSES NAUSEA AND VOMITING. HOME MEDICATIONS: Include DuoNeb one inhalation four times daily, Brovana 15 mcg inhaled twice daily, and Pulmicort Respules 0.5 mg inhaled twice daily. SOCIAL HISTORY: The patient lives alone, but has multiple children who are involved in her care. She smoked one pack per day for 45 years, but quit back in 2015, she denies any alcohol or illicit drug use. She is currently disabled. FAMILY HISTORY: Positive for breast cancer and pneumonia, but no early coronary disease. PAST SURGICAL HISTORY: Includes hysterectomy and cholecystectomy. REVIEW OF SYSTEMS: Consultation Report [address] [place]. [address] NAME: RAMILA SCANLON : 57 STATUS : ADM IN PAT#: [id number] AGE: 61 ADM/REG DATE : 07/16/16 MR#: [id number] REPORT SERV DATE: 07/18/16 DICTATED BY: ZEESHAN RED DATE: 07/18/16 REPORT STATUS : Draft TRANSCRIBED BY: ALOK DATE: 07/18/16 Was unable to be obtained secondary to the patient being sedated, and on the respirator. PHYSICAL EXAMINATION: GENERAL: This 61-year-old white female sedated on the ventilator and appearing older than stated age currently. CONSTITUTIONAL WITH VITAL SIGNS: 115/56, afebrile, oxygen saturation 95% to 96%. Heart rate 90s, normal sinus rhythm. Weight 88.7 kilos, height 5 feet 6 inches. HEAD, EARS, EYES, NOSE, AND THROAT: Normocephalic, atraumatic. Pupils equal, round, and reactive to light. Ears, nose, and throat without drainage, lesions, or exudates noted. NECK: Supple. No lymphadenopathy, JVD, or bruits noted. Trachea midline with no obvious cord. CARDIOVASCULAR: Revealed a holosystolic murmur with a regular rate and rhythm. S1, S2. No gallop or rub. CHEST: Symmetrical bilateral movement. No chest wall deformities noted. There is no axillary lymphadenopathy noted. RESPIRATORY: Scattered rhonchi bilaterally. She is currently orally intubated. GASTROINTESTINAL: Abdomen soft, nontender, nondistended. Positive bowel sounds in all four quadrants. No hepatosplenomegaly noted. : The patient has Solis catheter in place with clear yellow urine draining. Otherwise deferred. NEUROLOGIC: The patient withdraws all four extremities to pain. She is currently sedated, however. SKIN: Warm and dry with no breakdown or lesions and normal turgor. EXTREMITIES: With 2+ pulses in her lower extremities. No edema. There is no clubbing or cyanosis. MUSCULOSKELETAL: Without obvious kyphosis or scoliosis noted. There are no obvious bony abnormalities. Normal range of motion in all four extremities. HEMATOLOGIC/LYMPHATIC: Without any obvious petechiae or ecchymosis noted. There is no supraclavicular, axillary, or cervical lymphadenopathy noted. PSYCHIATRIC: Unable to be obtained secondary to the patient being sedated on the respirator. DATA: 1. Blood cultures dated 07/17/2016, 2 of 2 positive for gram-positive cocci. 2. Stress test dated 06/07/2016, no evidence of ischemia. Left ventricular ejection fraction 61%. 3. CTA of the chest dated 07/17/2016, negative for dissection. 4. Transthoracic echocardiogram, dated 07/17/2016, showing left ventricular ejection fraction 25%, dilated left ventricular anterior septal and apical hypocontractility, density noted on the aortic valve, non-coronary cusps, moderate to severe aortic regurgitation with severe aortic insufficiency. 5. MRI dated 07/17/2016, showing multifocal small acute ischemic infarcts in the left basal ganglia extending into the wright radiata, and within the left cerebral hemisphere. 6. Transesophageal echocardiogram showing a large complex mobile density on the aortic valve without valvular abscess, severe aortic regurgitation, left ventricular ejection Consultation Report [address] [place]. [address] NAME: RAMILA SCANLON : 57 STATUS : ADM IN [facility]#: [id number] AGE: 61 ADM/REG DATE : 07/16/16 MR#: [id number] REPORT SERV DATE: 07/18/16 DICTATED BY: ZEESHAN RED DATE: 07/18/16 REPORT STATUS : Draft TRANSCRIBED BY: MODL DATE: 07/18/16 fraction 50%, mild mitral pulmonic and tricuspid regurgitation. 7. Labs dated 07/18/2016, procalcitonin 3.44, sodium 135, potassium 3.9, BUN 25, creatinine 1.93, glucose 157, magnesium 2.6, phos 5.2, cholesterol 118, triglycerides 208, prealbumin 16.1, troponin 3.2, HDL 27, LDL 50, albumin 2.4, alkaline phosphatase 108, AST 33, ALT 18, white blood count 15, hemoglobin 10.4, hematocrit 30.8, platelet 144. 8. STS risk score calculations specific to this patient include mortality 9.097, any morbidity mortality 53.4%, long length of stay 48.8%, short length of stay 4.7%, permanent CVA risk 3.7%, prolonged ventilation risk 46.9%, deep sternal wound infection risk 0.2%, renal failure risk 20.2%, reoperation 17.19%. PROBLEM LIST: 1. Aortic valve endocarditis with severe aortic regurgitation and insufficiency. 2. Acute kidney injury. 3. COPD exacerbation with respiratory failure. 4. Acute cerebrovascular accident. 5. Septic shock. 6. Possible myocardial infarction, elevated troponin. 7. Gram-positive bacteremia. IMPRESSION AND PLAN: This is an extremely sick 61-year-old white female with multiple risk factors as outlined above. She has had CVA, which certainly increases her risk for further extension of this with any type of bypass-related surgery. She also has a vegetation noted on the aortic valve, and certainly could cause further embolization from this. She also has an acute kidney injury and certainly at high risk for needing dialysis with further dye load as well as aortic valve replacement surgery. Her heart function has significantly improved with being placed on antibiotics. I suspect that this is all related to her septic shock. She is also malnourished, which predisposes her to further wound healing problems. I discussed the case with Cardiology as well as Dr. Red discussing it in detail with the patient's family. We also placed a call to Neurology to further delineate the risk of proceeding on with surgery sooner than later. The risk is calculated specifically to her by the STS risk score calculator show a mortality risk of 9.097%, any morbidity mortality of 53.438%, long length of stay 48.823%, short length of stay 4.787%, permanent stroke 3.795%, prolonged ventilation 46.984%, deep sternal wound infection 0.286%, renal failure 20.288%, reoperation 17.199%. These risks were specifically discussed with the family in detail who are acting on behalf of the patient since she is currently intubated and sedated. We will discuss possible cardiac catheterization further with the tap dancer given that on CT scan she appears to have significant coronary calcification. We will continue to obtain data further prior to proceeding on with surgery, but try to maximize her fully to hopefully prevent any extension of her stroke as well as renal failure and other risks that may be associated with proceeding sooner. We will continue to update the family if further information becomes available. DICTATED BY: Jv Cannon NP Consultation Report [place] [id number] [facility] [place] [address] NAME: RAMILA SCANLON : 57 STATUS : ADM IN PAT#: [id number] AGE: 61 ADM/REG DATE : 07/16/16 MR#: [id number] REPORT SERV DATE: 07/18/16 DICTATED BY: ZEESHAN RED DATE: 07/18/16 REPORT STATUS : Draft TRANSCRIBED BY: MODL DATE: 07/18/16 MICHELE/ALOK Zeeshan Red MD / [id number] CC: Carlton Taylor MD Vinay Deep Madan, MD
--- NOTE | ~2016-07-16 | IDS ---
Interim Discharge Summary [facility] [address] [place]. [address] NAME: RAMILA SCANLON : 57 STATUS : ADM IN [facility]#: [id number] AGE: 61 ADM/REG DATE : 07/16/16 MR#: [id number] REPORT SERV DATE: 07/31/16 DICTATED BY: JULISSA TESFAYE DATE: 07/30/16 REPORT STATUS : Draft TRANSCRIBED BY: MODL DATE: 07/30/16 ADMISSION DATE: 07/16/2016 DISCHARGE DATE: CURRENT INTERIM DISCHARGE DIAGNOSES: 1. Aortic valve endocarditis, status post aortic valve repair, postoperative day 11, currently on Rocephin and ampicillin by Infectious Disease. 2. Enterococcus faecalis bacteremia. 3. Severe chronic obstructive pulmonary disease with postoperative respiratory failure, resolved. 4. Multiple embolic cerebrovascular accidents. 5. Acute kidney injury, resolved. 6. Coronary artery disease, nonobstructive. 7. Peripheral arterial disease. 8. Encephalopathy, significantly improved. 9. Volume overload, improved. 10.Right upper extremity superficial thrombus of the brachialis and brachial veins, improved. 11.Hyperlipidemia. 12.Weakness and debility. CONSULTANTS ON THE CASE: Include 1. Critical Care, who accepted the patient to the ICU on 07/17/2016 and transferred the patient to floor on 07/26/2016. Pulmonary, Dr. Suarez, which signed off. 2. Cardiothoracic Surgery; Dr. Chavez, who performed the aortic valve repair. 3. Cardiology [facility]. 4. Neurology, Dr. Singer that signed off. PROCEDURE DONE DURING THIS HOSPITALIZATION: Include, 1. A CT scan of the brain on 07/17/2016 showing multiple acute infarcts that has been also confirmed on the MRI of the brain. 2. A CT of the chest on 07/17/2016 demonstrating no evidence of dissection, but significant COPD with emphysematous changes. 3. Echocardiogram on the 07/17/2016 showing severe aortic insufficiency with concerns for possible endocarditis. 4. JAIRO on 07/18/2016 showing a severe aortic insufficiency with a large vegetative lesion on the valve, but no abscess. 5. Carotid ultrasound on the 07/18/2016 showing no significant disease. The patient has been intubated, mechanical ventilated, and extubated on the 07/24/2016 and aortic valve replacement was on the 07/20/2016. HOSPITAL COURSE: Shortly, this is a very pleasant 61-year-old female who initially has been admitted to Hospitalist Service on 07/16/2016 with a presumed COPD exacerbation. For further details, please see history and physical exam of Dr. Chase Alcocer. The patient respiratory failure got progressively worse and the patient has been transferred to the Outside Rigger Service under the care of Dr. Sally Barahona. She has been intubated. She has had Interim Discharge Summary [address] [address] NAME: RAMILA SCANLON : 57 STATUS : ADM IN [facility]#: [id number] AGE: 61 ADM/REG DATE : 07/16/16 MR#: [id number] REPORT SERV DATE: 07/31/16 DICTATED BY: JULISSA TESFAYE DATE: 07/30/16 REPORT STATUS : Draft TRANSCRIBED BY: ALOK DATE: 07/30/16 blood cultures from admission which showed positive Enterococcus faecalis. The patient has been also extremely confused that prompted a CT scan of the brain which demonstrated some concerns about some brain infarct and MRI has confirmed that the patient has multiple small embolic infarcts. An echo has been obtained and that demonstrates significant aortic insufficiency with a concern of a possible vegetation lesion on the valve that has been confirmed the following day with a JAIRO for which reason Dr. Cahvez from Cardiothoracic Surgery was consulted. ID has been consulted as well, and the patient has been started on broad-spectrum antibiotics with Rocephin and ampicillin. The cardiothoracic surgeon felt the patient is a candidate for aortic valve replacement that has been performed on 07/20/2016. The patient had some degree of acute kidney injury at the admission with some decompensation, however, that improved significantly with supportive care. She has been extubated successfully on the 07/24/2016 and she also underwent a swallow study for which the patient passed. Regarding her encephalopathy, she got progressively better, and the patient has been transferred to the floor back to the Hospitalist Service on 07/31/2016. The patient has had significant volume overload. Since admission, she has been started to be diuresed aggressively while she was on the floor with significant improvement. She also has an ultrasound of the right upper extremity which showed no evidence of DVT, but some superficial venous thrombus of the brachialis and brachial veins. Obviously, the patient has been still has started on anticoagulation while she was on the floor and currently her INR is therapeutic. The patient has been started with work with the Physical Therapy. Currently, she remain quite weak and she will need inpatient rehab, hopefully over the next few days with antibiotic recommendation per Dr. Dino Villar. She has a steady and significant progress, and I anticipate that the patient will go to rehab a rehab at nursing home facility soon with again antibiotics per Dr. Villar's recommendation. As well, the patient will need some colonoscopy in the near future and the patient is currently be continued to be followed up by CT Surgery, Infectious Disease, Cardiology, and Pulmonary has signed off. MEDICATIONS: At this interim discharge summary include vitamin C, aspirin, Lipitor, Rocephin, folic acid, Lasix, melatonin, Lopressor, multivitamin, nitro ointment, Protonix, MiraLAX, Seroquel, Spiriva, Coumadin per sliding, scale, Orazinc, and ampicillin. Also, Proventil, Brovana, and Pulmicort. My partner is going to start to see Ms Toro Francois from 08/01/2016. CF/MODL Julissa Tesfaye M.D. / [id number] CC: Julissa Tesfaye M.D. Luca Adair MD
--- NOTE | ~2016-07-16 | CN ---
Consultation Report [facility] [address] [place]. [address] NAME: RAMILA SCANLON : 57 STATUS : ADM IN [facility]#: [id number] AGE: 61 ADM/REG DATE : 07/16/16 MR#: [id number] REPORT SERV DATE: 07/18/16 DICTATED BY: DINO DAVID DATE: 07/17/16 REPORT STATUS : Draft TRANSCRIBED BY: MODL DATE: 07/17/16 INFECTIOUS DISEASE CONSULT DATE OF CONSULTATION: REASON FOR CONSULT: Possible endocarditis. HISTORY OF PRESENT ILLNESS: A 61 years old white lady with history of COPD on home oxygen, diastolic heart dysfunction, anxiety who was admitted for acute on chronic shortness of breath on 07/16/2016. At this time, the patient is intubated so but she is awake and able to shake her head yes or no. I also discussed with her children. She was hospitalized in February of last year with the respiratory failure, hypercapnia, non ST-elevation [place]. She also had acute renal insufficiency at that time. Apparently, she follows with Cardiology but I do not have those records. I understand she had even a stress test in outpatient. About a week ago, she started developing more shortness of breath than her baseline but no cough, no fever or chills. No sore throat. No runny nose. No skin lesions or rashes. For a couple of days, she had "diarrhea" but that resolved. She did not seek medical attention. She might have had some lower abdominal pain prior to the admission. She reported no dysuria or difficulty urinating. According to the ER notes, she came for shortness of breath. In the ER, she was given Solu-Medrol and IV fluids. Chest x-ray did not show obvious infiltrates. Lab work showed hemoglobin low at 7.2, WBC 8, procalcitonin 0.5, creatinine 1.3. She also complained of some right leg swelling, so an ultrasound was done and showed no DVT. She had a CT of the abdomen and pelvis that just showed bibasilar atelectasis. She was transfused two units of blood, and she was started on levofloxacin. This morning when she got out of bed apparently, she had acute shortness of breath, tachycardia so code was called. According to the records, she was in sinus tachycardia. She had high blood pressure. She was given Lasix during the code and was put on a BiPAP, however, she had to be intubated. ABGs showed metabolic acidosis with a pH of 7.07 and a bicarb of 14. She was transferred to ICU. An echocardiogram was done. I do not have the full report but I was told there was an echodensity on the aortic valve as well as severe aortic insufficiency and new ventricular dysfunction. She had left ventricular ejection fraction of 25%, dilated left ventricle, anteroseptal anterior and apical hypocontractility. The right ventricle could not be seen well. She had a CTA of the chest to rule out an aortic dissection, and that was not confirmed. There is evidence of emphysema and some bilateral effusions. CT of the brain was done without contrast and that showed some areas of low density in the left occipital and left temporal areas. An infarction could not be ruled out and MRI was proposed. The repeat lab work shows a lactic acid of 2.0, creatinine increased to 2.0, troponin increased to 2.9. Urinalysis with one white blood cells, rare bacteria. An NG-tube was placed, and she is on Consultation Report [address] [address] NAME: RAMILA SCANLON : 57 STATUS : ADM IN [facility]#: [id number] AGE: 61 ADM/REG DATE : 07/16/16 MR#: [id number] REPORT SERV DATE: 07/18/16 DICTATED BY: DINO DAVID DATE: 07/17/16 REPORT STATUS : Draft TRANSCRIBED BY: MODPatsy DATE: 07/17/16 the low dose of Levophed. Her urine output is low. I again asked the patient more questions, she reports no recent toothaches, no sore throat. No dysuria, no arthralgias, no skin lesions. No fever. PAST MEDICAL HISTORY: As I mentioned above plus according to the chart, she had at some point oral candidiasis. She had hysterectomy, cholecystectomy. FAMILY HISTORY: Breast cancer. SOCIAL HISTORY: Quit smoking last year. She lives with her grandson. She does not have any animals or pets. She has not worked outdoors. She is disabled. ALLERGIES: ACCORDING TO THE CHART, SULFA CAUSED "FEVER BLISTERS IN THE MOUTH." ASPIRIN CAUSED NAUSEA AND VOMITING. MEDICATIONS ON ADMISSION: DuoNeb inhaler, Brovana, and Pulmicort. PHYSICAL EXAMINATION: GENERAL: On exam she is alert. HEENT: No scleral icterus. LUNGS: Decreased sounds throughout, more on the right than the left but no wheezes, rhonchi, or rales. HEART: Distant sounds. Regular rhythm. No murmurs. ABDOMEN: Compressible, obese, nontender to palpation. SKIN: With numerous areas of heme in the skin on both forearms. No signs of embolis on the feet and hands. : She has a Solis catheter right now. EXTREMITIES: No obvious joint swelling. ASSESSMENT AND PLAN: 1. Possible aortic valve vegetation with new severe aortic insufficiency per history. 2. Acute on chronic respiratory failure, with metabolic acidosis. She was intubated. 3. Chronic obstructive pulmonary disease, on chronic oxygen. 4. Hypotension. 5. Heart failure based on the echocardiogram. Blood cultures were collected on admission, and the results are pending so far. She was given levofloxacin and Solu-Medrol. According the patient, she has not been on antibiotics at home. The history as far as I can collect from the patient and the family is not suggestive of subacute endocarditis but given the severity of her illness, we will have to follow up cultures and use empiric antibiotics. I am going to add vancomycin to the levofloxacin. Blood cultures were reordered for today. Tomorrow, the plan is to do a transesophageal echocardiogram and also today she will have an MRI of the brain to rule out embolization. I discussed with the family, the patient's nurse as well as the patient. Time spent about 2 hours and a half. Consultation Report [address] [place]. [address] NAME: RAMILA SCANLON ELIZABETH : 57 STATUS : ADM IN [facility]#: [id number] AGE: 61 ADM/REG DATE : 07/16/16 MR#: [id number] REPORT SERV DATE: 07/18/16 DICTATED BY: DINO DAVID DATE: 07/17/16 REPORT STATUS : Draft TRANSCRIBED BY: ALOK DATE: 07/17/16 YOLANDA/ALOK Dino David M.D. / [id number] CC: Carlton Taylor MD
[~2016-07-16 10:14] MED LIST: *UNABLE3; ALBUTEROL0.63 MG/3 INH; COMBIVENT INH; LEVAQUIN750 MG PO; MEDROLPAK4; MUCINEX600 MG PO; PROAIR HFA INH; STERAPRED DS10 MG; SYMBICORT 160/41 INH INH; ZITH250 PO
[2016-07-16 10:56] LABS: ALLENS TEST Pos; BE (BASE EXCESS) 2.5 MEQ/L (0 +/- 2.5); CARBOXYHEMOGLOBIN 1.9 % (0-3); HCO3 (ACTUAL BICARBONATE) 25.5 MEQ/L (23-27); HEMOBLOGIN CONTENT 7.7 G/DL (12-16); INSTRUMENT SERIAL # 8087; METHEMOGLOBIN 0.4 % (0-3); O2 CONTENT 10.5 VOL% (18-24); OPERATOR ID 14335; PCO2 (CO2 TENSION) 32 MMHG (35-45); PO2 (O2 TENSION) 92 MMHG (79-93); SAMPLE Arterial; pH 7.52 (7.37-7.43)
[2016-07-16 11:10] LABS: BASOPHILS 0 %; EOSINOPHILS 0 %; HEMOGLOBIN 7.2 g/dL (12.0-16.0); IMMATURE GRANULOCYTES 0.1 %; IMMATURE GRANULOCYTES ABSOLUTE 0.01 10/3/uL (0.0-0.11); LYMPHOCYTES 6.7 %; LYMPHOCYTES ABSOLUTE 0.55 10/3/uL (0.67-4.30); MEAN CORPUS HGB CONC 31.7 g/dL (32.0-36.0); MEAN PLATELET VOLUME 10.9 fL (9.2-13.0); MONOCYTES 3.8 %; MONOCYTES ABSOLUTE 0.31 10/3/uL (0.21-1.20); NEUTROPHILS 89.4 %; NEUTROPHILS ABSOLUTE 7.29 10/3/uL (2.02-8.40); RBC DISTRIBUTION WIDTH 16.3 % (12.0-16.0); RED CELL COUNT 3.38 10/6/uL (4.0-5.6)
[2016-07-16 11:12] LABS: ER CBC TAT 0 Hrs 09 Mins; WHITE BLOOD CELLS 8.2 10/3/uL (4.5-10.5)
[2016-07-16 11:13] LABS: HEMATOCRIT 22.7 % (36.0-48.0); MANUAL DIFF NO %; MEAN CORPUSCULAR HEMOGLOB 21.3 pg (26.0-34.0); MEAN CORPUSCULAR VOLUME 67.2 fL (80-100); PLATELET COUNT 146 10/3/uL (150-400)
[2016-07-16 11:24] LABS: BUN (BLOOD UREA NITROGEN) 8 MG/DL (6-23); CALCIUM, SERUM 8.1 MG/DL (8.5-10.4); CHLORIDE, SERUM 94 MMOL/L (96-112); CO2 (CARBON DIOXIDE) 24 MMOL/L (24-34); GFR AFRICAN AMERICAN 52 ML/MIN (>=60); GFR NON AFRICAN AMERICAN 45 ML/MIN (>=60); GLUCOSE, SERUM 114 MG/DL (60-99); POTASSIUM, SERUM 3.2 MMOL/L (3.5-5.3); SODIUM, SERUM 131 MMOL/L (135-148)
[2016-07-16 11:36] LABS: HYPOCHROMIA 1+ (3-10/OIF) (0-2/OIF); PLATELET ESTIMATE SLT DEC (ADEQUATE); POIKILOCYTOSIS 1+ (5-10/OIF) (0-5/OIF); SCHISTOCYTES OCC (0-2/OIF); TEARDROP SHAPED RBCS OCC (0-2/OIF)
[2016-07-16 11:37] LABS: ELLIPTOCYTES 1+ (3-10/OIF) (0-2/OIF)
[2016-07-16] MEDS ORDERED: DUONEB INH (13:26)
[2016-07-16] MEDS ORDERED: BROVANA15 MCG INH (13:26)
[2016-07-16] MEDS ORDERED: PULRESP.5 INH (13:27)
[2016-07-16 16:39] LABS: BASOPHILS 0 %; EOSINOPHILS 0 %; HEMATOCRIT 22.2 % (36.0-48.0); HEMOGLOBIN 7.1 g/dL (12.0-16.0); IMMATURE GRANULOCYTES 0.2 %; IMMATURE GRANULOCYTES ABSOLUTE 0.01 10/3/uL (0.0-0.11); LYMPHOCYTES 8.1 %; LYMPHOCYTES ABSOLUTE 0.38 10/3/uL (0.67-4.30); MEAN CORPUSCULAR HEMOGLOB 21.5 pg (26.0-34.0); MEAN CORPUSCULAR VOLUME 67.3 fL (80-100); MEAN PLATELET VOLUME 10.9 fL (9.2-13.0); MONOCYTES 0.9 %; MONOCYTES ABSOLUTE 0.04 10/3/uL (0.21-1.20); NEUTROPHILS 90.8 %; NEUTROPHILS ABSOLUTE 4.27 10/3/uL (2.02-8.40); PLATELET COUNT 113 10/3/uL (150-400); RBC DISTRIBUTION WIDTH 16.1 % (12.0-16.0); RETICULOCYTE COUNT 0.8 % (0.5-2.5); RETICULOCYTE COUNT ABSOLUTE 26.1 10/3/uL (20.2-119.8)
[2016-07-16 16:40] LABS: MANUAL DIFF NO %; WHITE BLOOD CELLS 4.7 10/3/uL (4.5-10.5)
[2016-07-16 17:01] LABS: A/G RATIO 0.7 (0.7-1.9); ALBUMIN 2.5 G/DL (3.5-5.0); ALKALINE PHOSPHATASE 98 U/L (45-117); BUN (BLOOD UREA NITROGEN) 10 MG/DL (6-23); CALCIUM, SERUM 8.2 MG/DL (8.5-10.4); CHLORIDE, SERUM 92 MMOL/L (96-112); CO2 (CARBON DIOXIDE) 26 MMOL/L (24-34); CREATININE 1.42 MG/DL (0.55-1.02); FERRITIN 411 NG/ML (8-252); GFR AFRICAN AMERICAN 46 ML/MIN (>=60); GFR NON AFRICAN AMERICAN 40 ML/MIN (>=60); GLOBULIN 3.6 G/DL (2.5-4.1); GLUCOSE, SERUM 167 MG/DL (60-99); IRON BINDING CAPACITY 210 MCG/DL (225-410); IRON, SERUM 7 MCG/DL (35-150); PHOSPHORUS, SERUM 3.7 MG/DL (2.5-4.5); POTASSIUM, SERUM 3.2 MMOL/L (3.5-5.3); SGOT(AST) 19 U/L (5-40); SGPT(ALT) 9 U/L (5-65); SODIUM, SERUM 130 MMOL/L (135-148); TOTAL BILIRUBIN 0.7 MG/DL (0-1.2); TOTAL PROTEIN 6.1 G/DL (6.0-8.5)
[2016-07-16 17:02] LABS: TROPONIN I 0.68 NG/ML (<0.05)
[2016-07-16 17:35] LABS: PROCALCITONIN 0.57 ng/mL (<0.5)
[2016-07-16 18:33] LABS: ANISOCYTOSIS 1+ (5-10/OIF) (0-5/OIF)
[2016-07-16 18:34] LABS: POIKILOCYTOSIS 1+ (5-10/OIF) (0-5/OIF)
[2016-07-16 18:35] LABS: PLATELET ESTIMATE SLT DEC (ADEQUATE); TARGET CELLS OCC (1-2/OIF) (0-1/OIF)
[2016-07-16 19:18] LABS: CK-MB 2.2 NG/ML; CPK 35 U/L (0-200)
[2016-07-17 07:03] LABS: BUN (BLOOD UREA NITROGEN) 17 MG/DL (6-23); CALCIUM, SERUM 8.2 MG/DL (8.5-10.4); CHLORIDE, SERUM 96 MMOL/L (96-112); CK-MB 3.4 NG/ML; CO2 (CARBON DIOXIDE) 23 MMOL/L (24-34); CPK 29 U/L (0-200); CREATININE 1.53 MG/DL (0.55-1.02); GFR AFRICAN AMERICAN 42 ML/MIN (>=60); GFR NON AFRICAN AMERICAN 37 ML/MIN (>=60); GLUCOSE, SERUM 137 MG/DL (60-99); POTASSIUM, SERUM 3.7 MMOL/L (3.5-5.3); SODIUM, SERUM 132 MMOL/L (135-148); TROPONIN I 0.38 NG/ML (<0.05)
[2016-07-17 07:12] LABS: BASOPHILS 0 %; EOSINOPHILS 0 %; IMMATURE GRANULOCYTES 0.2 %; IMMATURE GRANULOCYTES ABSOLUTE 0.01 10/3/uL (0.0-0.11); LYMPHOCYTES 8.2 %; LYMPHOCYTES ABSOLUTE 0.39 10/3/uL (0.67-4.30); MEAN CORPUS HGB CONC 33.2 g/dL (32.0-36.0); MEAN CORPUSCULAR HEMOGLOB 22.9 pg (26.0-34.0); MEAN CORPUSCULAR VOLUME 68.9 fL (80-100); MEAN PLATELET VOLUME 10.9 fL (9.2-13.0); MONOCYTES 3.3 %; MONOCYTES ABSOLUTE 0.16 10/3/uL (0.21-1.20); NEUTROPHILS 88.3 %; NEUTROPHILS ABSOLUTE 4.22 10/3/uL (2.02-8.40); PLATELET COUNT 107 10/3/uL (150-400); RBC DISTRIBUTION WIDTH 17.4 % (12.0-16.0); RED CELL COUNT 3.89 10/6/uL (4.0-5.6); WHITE BLOOD CELLS 4.8 10/3/uL (4.5-10.5)
[2016-07-17 07:15] LABS: HEMATOCRIT 26.8 % (36.0-48.0); HEMOGLOBIN 8.9 g/dL (12.0-16.0); MANUAL DIFF NO %
[2016-07-17 07:25] LABS: ANISOCYTOSIS 1+ (5-10/OIF) (0-5/OIF); PLATELET ESTIMATE SLT DEC (ADEQUATE); POIKILOCYTOSIS 1+ (5-10/OIF) (0-5/OIF); POLYCHROMASIA 1+ (2-5/OIF) (0-1/OIF)
[2016-07-17 08:23] LABS: B NATRIURETIC PEPTIDE (BNP) 610.8 PG/ML (< 100.0)
[2016-07-17 08:45] LABS: SMEAR FOR ABNORMAL CELLS SEE PATHOLOGY REPORT
[2016-07-17 09:29] LABS: ALLENS TEST Pos; BE (BASE EXCESS) -14.2 MEQ/L (0 +/- 2.5); CARBOXYHEMOGLOBIN 0.3 % (0-3); HCO3 (ACTUAL BICARBONATE) 14.2 MEQ/L (23-27); HEMOBLOGIN CONTENT 11.7 G/DL (12-16); INSTRUMENT SERIAL # 35151; METHEMOGLOBIN 0.7 % (0-3); OPERATOR ID 32214; PCO2 (CO2 TENSION) 43 MMHG (35-45); PO2 (O2 TENSION) 120 MMHG (79-93); SAMPLE Arterial; pH 7.14 (7.37-7.43)
[2016-07-17 10:27] LABS: GLYCOHEMOGLOBIN (HbA1c) 5.4 % (4.7-6.1)
[2016-07-17 10:44] LABS: HEMOGLOBIN 10.3 g/dL (12.0-16.0); MEAN CORPUS HGB CONC 32.1 g/dL (32.0-36.0); MEAN CORPUSCULAR HEMOGLOB 22.8 pg (26.0-34.0); RBC DISTRIBUTION WIDTH 17.3 % (12.0-16.0); RED CELL COUNT 4.52 10/6/uL (4.0-5.6)
[2016-07-17 10:45] LABS: HEMATOCRIT 32.1 % (36.0-48.0); MANUAL DIFF YES %; PLATELET COUNT 180 10/3/uL (150-400); WHITE BLOOD CELLS 21.1 10/3/uL (4.5-10.5)
[2016-07-17 10:58] LABS: BUN (BLOOD UREA NITROGEN) 18 MG/DL (6-23); CALCIUM, SERUM 8.4 MG/DL (8.5-10.4); CHLORIDE, SERUM 95 MMOL/L (96-112); CK-MB 7.3 NG/ML; CO2 (CARBON DIOXIDE) 21 MMOL/L (24-34); CREATININE 1.84 MG/DL (0.55-1.02); GFR AFRICAN AMERICAN 34 ML/MIN (>=60); GFR NON AFRICAN AMERICAN 29 ML/MIN (>=60); SODIUM, SERUM 131 MMOL/L (135-148)
[2016-07-17 10:59] LABS: CKMB INDEX (NOT ORD) 10.3; CPK 71 U/L (0-200); GLUCOSE, SERUM 240 MG/DL (60-99); PHOSPHORUS, SERUM 7.4 MG/DL (2.5-4.5)
[2016-07-17 11:00] LABS: TROPONIN I 0.78 NG/ML (<0.05)
[2016-07-17 11:08] LABS: ANISOCYTOSIS 1+ (5-10/OIF) (0-5/OIF); BASOPHILIC STIPPLING 1+ (2-5/OIF) (0-1/OIF); PLATELET ESTIMATE ADQ (ADEQUATE); POIKILOCYTOSIS 1+ (5-10/OIF) (0-5/OIF)
[2016-07-17 11:09] LABS: ELLIPTOCYTES 1+ (3-10/OIF) (0-2/OIF); HELMET CELLS FEW (3-10/OIF); POLYCHROMASIA 1+ (2-5/OIF) (0-1/OIF)
[2016-07-17 11:25] LABS: ASCORBIC ACID (UR NOT ORDER) NEG (NEG); BILIRUBIN, URINE NEGATIVE (NEG); KETONE, URINE NEGATIVE (NEG); LEUKOCYTE ESTERASE(NOT OR NEG (NEG); WBC (NOT ORDERED) (RFLEX) 1 (0-5)
[2016-07-17 12:50] LABS: ALLENS TEST Pos; BE (BASE EXCESS) -5.4 MEQ/L (0 +/- 2.5); CARBOXYHEMOGLOBIN 0.3 % (0-3); HCO3 (ACTUAL BICARBONATE) 18.2 MEQ/L (23-27); HEMOBLOGIN CONTENT 11.4 G/DL (12-16); INSTRUMENT SERIAL # 35151; METHEMOGLOBIN 0.7 % (0-3); MODE CMV; O2 CONTENT 16.1 VOL% (18-24); PCO2 (CO2 TENSION) 30 MMHG (35-45); PO2 (O2 TENSION) 178 MMHG (79-93); SAMPLE Arterial; TIDAL VOLUME 550 ML; pH 7.41 (7.37-7.43)
[2016-07-17 16:25] LABS: ALBUMIN 2.3 G/DL (3.5-5.0); BUN (BLOOD UREA NITROGEN) 22 MG/DL (6-23); CALCIUM, SERUM 8.5 MG/DL (8.5-10.4); CHLORIDE, SERUM 98 MMOL/L (96-112); CK-MB 21.8 NG/ML; CKMB INDEX (NOT ORD) 13.5; CO2 (CARBON DIOXIDE) 21 MMOL/L (24-34); CPK 162 U/L (0-200); CREATININE 2.02 MG/DL (0.55-1.02); GFR AFRICAN AMERICAN 30 ML/MIN (>=60); GFR NON AFRICAN AMERICAN 26 ML/MIN (>=60); GLUCOSE, SERUM 145 MG/DL (60-99); PHOSPHORUS, SERUM 5.2 MG/DL (2.5-4.5); POTASSIUM, SERUM 3.8 MMOL/L (3.5-5.3); SODIUM, SERUM 133 MMOL/L (135-148); TROPONIN I 2.97 NG/ML (<0.05)
[2016-07-17 16:30] LABS: HEMATOCRIT 30.6 % (36.0-48.0); HEMOGLOBIN 10.2 g/dL (12.0-16.0)
[2016-07-17 17:36] LABS: INTERNATIONAL NORMAL RATI 1.3 UNITS (-); PARTIAL THROMBO TIME 29.5 SEC (22.5-37.2)
[2016-07-17 17:37] LABS: PROTIME (NOT ORD) 16.3 SEC (12.0-14.5)
[2016-07-17 22:34] LABS: HEMATOCRIT 30.2 % (36.0-48.0); HEMOGLOBIN 9.9 g/dL (12.0-16.0)
[2016-07-18 02:06] LABS: BASOPHILS 0 %; EOSINOPHILS 0 %; HEMATOCRIT 30.8 % (36.0-48.0); HEMOGLOBIN 10.4 g/dL (12.0-16.0); IMMATURE GRANULOCYTES 0.5 %; IMMATURE GRANULOCYTES ABSOLUTE 0.07 10/3/uL (0.0-0.11); LYMPHOCYTES 3.6 %; LYMPHOCYTES ABSOLUTE 0.54 10/3/uL (0.67-4.30); MEAN CORPUS HGB CONC 33.8 g/dL (32.0-36.0); MEAN CORPUSCULAR HEMOGLOB 23.6 pg (26.0-34.0); MONOCYTES 3.4 %; MONOCYTES ABSOLUTE 0.51 10/3/uL (0.21-1.20); NEUTROPHILS 92.5 %; NEUTROPHILS ABSOLUTE 13.89 10/3/uL (2.02-8.40); PLATELET COUNT 144 10/3/uL (150-400); RBC DISTRIBUTION WIDTH 17.5 % (12.0-16.0)
[2016-07-18 02:07] LABS: MANUAL DIFF NO %
[2016-07-18 02:23] LABS: ANISOCYTOSIS 1+ (5-10/OIF) (0-5/OIF); ELLIPTOCYTES 1+ (3-10/OIF) (0-2/OIF); PLATELET ESTIMATE SLT DEC (ADEQUATE)
[2016-07-18 02:27] LABS: BUN (BLOOD UREA NITROGEN) 25 MG/DL (6-23); CALCIUM, SERUM 8.5 MG/DL (8.5-10.4); CHLORIDE, SERUM 99 MMOL/L (96-112); CK-MB 19.6 NG/ML; CO2 (CARBON DIOXIDE) 23 MMOL/L (24-34); CREATININE 1.93 MG/DL (0.55-1.02); GFR AFRICAN AMERICAN 32 ML/MIN (>=60); GFR NON AFRICAN AMERICAN 28 ML/MIN (>=60); GLUCOSE, SERUM 157 MG/DL (60-99); PHOSPHORUS, SERUM 5.2 MG/DL (2.5-4.5); POTASSIUM, SERUM 3.9 MMOL/L (3.5-5.3); SODIUM, SERUM 135 MMOL/L (135-148)
[2016-07-18 02:29] LABS: CKMB INDEX (NOT ORD) 20.6; CPK 95 U/L (0-200)
[2016-07-18 03:05] LABS: A/G RATIO 0.6 (0.7-1.9); ALBUMIN 2.4 G/DL (3.5-5.0); ALKALINE PHOSPHATASE 108 U/L (45-117); GLOBULIN 3.7 G/DL (2.5-4.1); PREALBUMIN 16.1 MG/DL (17.0-43.0); SGOT(AST) 33 U/L (5-40); SGPT(ALT) 18 U/L (5-65); TOTAL BILIRUBIN 0.8 MG/DL (0-1.2); TOTAL PROTEIN 6.1 G/DL (6.0-8.5); TRIGLYCERIDE 208 MG/DL (< 150)
[2016-07-18 03:07] LABS: CHOL/HDL RATIO(NOT ORDER) 4.4 (0-5); CHOLESTEROL 118 MG/DL (< 200); HDL CHOLESTEROL 27 MG/DL (> 49); LDL CHOLESTEROL 50 MG/DL (< 130); NON-HDL CHOLESTEROL 91 MG/DL (< 160)
[2016-07-18 03:27] LABS: PROCALCITONIN 3.44 ng/mL (<0.5)
[2016-07-18 04:19] LABS: BE (BASE EXCESS) -5.4 MEQ/L (0 +/- 2.5); CARBOXYHEMOGLOBIN 0.2 % (0-3); HCO3 (ACTUAL BICARBONATE) 18.2 MEQ/L (23-27); HEMOBLOGIN CONTENT 10.9 G/DL (12-16); INSTRUMENT SERIAL # 35151; METHEMOGLOBIN 0.6 % (0-3); MODE CMV; O2 CONTENT 14.6 VOL% (18-24); PCO2 (CO2 TENSION) 29 MMHG (35-45); PO2 (O2 TENSION) 85 MMHG (79-93); SAMPLE Arterial; TIDAL VOLUME 550 ML; pH 7.41 (7.37-7.43)
[2016-07-18 11:27] LABS: HEMATOCRIT 27.7 % (36.0-48.0)
[2016-07-18 20:28] LABS: A/G RATIO 0.8 (0.7-1.9); ALBUMIN 2.5 G/DL (3.5-5.0); CALCIUM, SERUM 8.3 MG/DL (8.5-10.4); CHLORIDE, SERUM 100 MMOL/L (96-112); CO2 (CARBON DIOXIDE) 25 MMOL/L (24-34); GFR AFRICAN AMERICAN 35 ML/MIN (>=60); GFR NON AFRICAN AMERICAN 30 ML/MIN (>=60); GLOBULIN 3.3 G/DL (2.5-4.1); GLUCOSE, SERUM 138 MG/DL (60-99); PHOSPHORUS, SERUM 4.5 MG/DL (2.5-4.5); POTASSIUM, SERUM 3.8 MMOL/L (3.5-5.3); SGOT(AST) 19 U/L (5-40); SGPT(ALT) 17 U/L (5-65); SODIUM, SERUM 137 MMOL/L (135-148); TOTAL BILIRUBIN 0.7 MG/DL (0-1.2); TOTAL PROTEIN 5.8 G/DL (6.0-8.5)
[2016-07-18 20:29] LABS: ALKALINE PHOSPHATASE 88 U/L (45-117); BUN (BLOOD UREA NITROGEN) 31 MG/DL (6-23)
[2016-07-19 03:22] LABS: BE (BASE EXCESS) -0.3 MEQ/L (0 +/- 2.5); CARBOXYHEMOGLOBIN 0.3 % (0-3); HCO3 (ACTUAL BICARBONATE) 23.6 MEQ/L (23-27); HEMOBLOGIN CONTENT 10.1 G/DL (12-16); INSTRUMENT SERIAL # 35151; METHEMOGLOBIN 0.8 % (0-3); MODE CMV; O2 CONTENT 13.3 VOL% (18-24); PCO2 (CO2 TENSION) 35 MMHG (35-45); PO2 (O2 TENSION) 79 MMHG (79-93); SAMPLE Arterial; TIDAL VOLUME 550 ML; pH 7.44 (7.37-7.43)
[2016-07-19 05:15] LABS: BASOPHILS 0 %; EOSINOPHILS 0 %; HEMATOCRIT 29.8 % (36.0-48.0); HEMOGLOBIN 9.6 g/dL (12.0-16.0); IMMATURE GRANULOCYTES 0.3 %; IMMATURE GRANULOCYTES ABSOLUTE 0.02 10/3/uL (0.0-0.11); LYMPHOCYTES 4.9 %; LYMPHOCYTES ABSOLUTE 0.34 10/3/uL (0.67-4.30); MEAN CORPUS HGB CONC 32.2 g/dL (32.0-36.0); MEAN CORPUSCULAR VOLUME 71.5 fL (80-100); MONOCYTES 4.3 %; NEUTROPHILS 90.5 %; NEUTROPHILS ABSOLUTE 6.25 10/3/uL (2.02-8.40); PLATELET COUNT 111 10/3/uL (150-400); RBC DISTRIBUTION WIDTH 18.1 % (12.0-16.0); RED CELL COUNT 4.17 10/6/uL (4.0-5.6)
[2016-07-19 05:16] LABS: MANUAL DIFF NO %; WHITE BLOOD CELLS 6.9 10/3/uL (4.5-10.5)
[2016-07-19 05:24] LABS: ALBUMIN 2.4 G/DL (3.5-5.0); CALCIUM, SERUM 8.7 MG/DL (8.5-10.4); CHLORIDE, SERUM 103 MMOL/L (96-112); CO2 (CARBON DIOXIDE) 23 MMOL/L (24-34); CREATININE 1.66 MG/DL (0.55-1.02); GFR AFRICAN AMERICAN 38 ML/MIN (>=60); GFR NON AFRICAN AMERICAN 33 ML/MIN (>=60); GLUCOSE, SERUM 137 MG/DL (60-99); PHOSPHORUS, SERUM 4.3 MG/DL (2.5-4.5); SODIUM, SERUM 138 MMOL/L (135-148)
[2016-07-19 05:26] LABS: BUN (BLOOD UREA NITROGEN) 36 MG/DL (6-23)
[2016-07-19 06:00] LABS: ANISOCYTOSIS 1+ (5-10/OIF) (0-5/OIF); ELLIPTOCYTES 1+ (3-10/OIF) (0-2/OIF); PLATELET ESTIMATE SLT DEC (ADEQUATE); TEARDROP SHAPED RBCS FEW (3-10/OIF)
[2016-07-20 04:20] LABS: INTERNATIONAL NORMAL RATI 1.3 UNITS (-); PROTIME (NOT ORD) 16.1 SEC (12.0-14.5)
[2016-07-20 04:24] LABS: BASOPHILS 0 %; EOSINOPHILS 0 %; HEMOGLOBIN 9.2 g/dL (12.0-16.0); IMMATURE GRANULOCYTES 0.3 %; IMMATURE GRANULOCYTES ABSOLUTE 0.03 10/3/uL (0.0-0.11); LYMPHOCYTES 12.5 %; LYMPHOCYTES ABSOLUTE 1.19 10/3/uL (0.67-4.30); MEAN CORPUS HGB CONC 30.7 g/dL (32.0-36.0); MEAN CORPUSCULAR HEMOGLOB 22.7 pg (26.0-34.0); MEAN PLATELET VOLUME 11.1 fL (9.2-13.0); MONOCYTES 11.4 %; MONOCYTES ABSOLUTE 1.08 10/3/uL (0.21-1.20); NEUTROPHILS 75.8 %; PLATELET COUNT 127 10/3/uL (150-400); RBC DISTRIBUTION WIDTH 18.4 % (12.0-16.0); RED CELL COUNT 4.06 10/6/uL (4.0-5.6); WHITE BLOOD CELLS 9.5 10/3/uL (4.5-10.5)
[2016-07-20 04:25] LABS: MANUAL DIFF NO %; MEAN CORPUSCULAR VOLUME 73.9 fL (80-100)
[2016-07-20 04:25] LABS: BE (BASE EXCESS) 3.4 MEQ/L (0 +/- 2.5); CARBOXYHEMOGLOBIN 0.3 % (0-3); HCO3 (ACTUAL BICARBONATE) 28.1 MEQ/L (23-27); HEMOBLOGIN CONTENT 9.9 G/DL (12-16); INSTRUMENT SERIAL # 35151; METHEMOGLOBIN 0.9 % (0-3); MODE CMV; O2 CONTENT 12.9 VOL% (18-24); PCO2 (CO2 TENSION) 44 MMHG (35-45); PO2 (O2 TENSION) 74 MMHG (79-93); SAMPLE Arterial; TIDAL VOLUME 550 ML; pH 7.43 (7.37-7.43)
[2016-07-20 04:50] LABS: % IRON SAT 13 % (20-50); A/G RATIO 0.8 (0.7-1.9); ALBUMIN 2.4 G/DL (3.5-5.0); ALKALINE PHOSPHATASE 81 U/L (45-117); BUN (BLOOD UREA NITROGEN) 40 MG/DL (6-23); CALCIUM, SERUM 8.2 MG/DL (8.5-10.4); CHLORIDE, SERUM 106 MMOL/L (96-112); CHOL/HDL RATIO(NOT ORDER) 5.3 (0-5); CHOLESTEROL 132 MG/DL (< 200); CO2 (CARBON DIOXIDE) 27 MMOL/L (24-34); CREATININE 1.39 MG/DL (0.55-1.02); DIRECT BILIRUBIN 0.2 MG/DL (0.0-0.4); GFR AFRICAN AMERICAN 48 ML/MIN (>=60); GFR NON AFRICAN AMERICAN 41 ML/MIN (>=60); GLOBULIN 3.2 G/DL (2.5-4.1); GLUCOSE, SERUM 108 MG/DL (60-99); HDL CHOLESTEROL 25 MG/DL (> 49); INDIRECT BILIRUBIN(NOT ORDER) 0.5 MG/DL (0.1-0.9); IRON BINDING CAPACITY 295 MCG/DL (225-410); IRON, SERUM 38 MCG/DL (35-150); LDL CHOLESTEROL 63 MG/DL (< 130); NON-HDL CHOLESTEROL 107 MG/DL (< 160); PHOSPHORUS, SERUM 3.3 MG/DL (2.5-4.5); POTASSIUM, SERUM 4.1 MMOL/L (3.5-5.3); SGOT(AST) 28 U/L (5-40); SGPT(ALT) 15 U/L (5-65); SODIUM, SERUM 142 MMOL/L (135-148); TOTAL BILIRUBIN 0.7 MG/DL (0-1.2); TOTAL PROTEIN 5.6 G/DL (6.0-8.5); TRIGLYCERIDE 221 MG/DL (< 150)
[2016-07-20 05:20] LABS: ANISOCYTOSIS 1+ (5-10/OIF) (0-5/OIF); MICROCYTES 1+ (5-10/OIF) (0-5/OIF); PLATELET ESTIMATE DEC (ADEQUATE)
[2016-07-20 05:21] LABS: ELLIPTOCYTES 1+ (3-10/OIF) (0-2/OIF); POIKILOCYTOSIS 1+ (5-10/OIF) (0-5/OIF)
[2016-07-20 13:56] LABS: TEG - ANGLE 61.9 DEG (53-72); TEG - MAXIMUM AMPLITUDE 52.8 MM (50-70); TEG - RATE 8.8 MIN (5.0-10.0)
[2016-07-20 14:13] LABS: BE (BASE EXCESS) 0.5 MEQ/L (0 +/- 2.5); CARBOXYHEMOGLOBIN 0.2 % (0-3); HEMOBLOGIN CONTENT 8.3 G/DL (12-16); INSTRUMENT SERIAL # 11843; METHEMOGLOBIN 1.1 % (0-3); MODE CMV; O2 CONTENT 12.3 VOL% (18-24); OPERATOR ID 19104; PCO2 (CO2 TENSION) 54 MMHG (35-45); PO2 (O2 TENSION) 330 MMHG (79-93); SAMPLE Arterial; TIDAL VOLUME 550 ML; pH 7.32 (7.37-7.43)
[2016-07-20 14:41] LABS: HEMOGLOBIN 7.6 g/dL (12.0-16.0); PLATELET COUNT 136 10/3/uL (150-400)
[2016-07-20 14:47] LABS: HEMATOCRIT 24.3 % (36.0-48.0); INTERNATIONAL NORMAL RATI 1.8 UNITS (-); PARTIAL THROMBO TIME 33.2 SEC (22.5-37.2)
[2016-07-20 14:50] LABS: PROTIME (NOT ORD) 20.9 SEC (12.0-14.5)
[2016-07-20 14:51] LABS: CALCIUM, SERUM 8.3 MG/DL (8.5-10.4); CHLORIDE, SERUM 104 MMOL/L (96-112); CO2 (CARBON DIOXIDE) 27 MMOL/L (24-34); CREATININE 1.41 MG/DL (0.55-1.02); GFR AFRICAN AMERICAN 47 ML/MIN (>=60); GFR NON AFRICAN AMERICAN 40 ML/MIN (>=60); GLUCOSE, SERUM 109 MG/DL (60-99); POTASSIUM, SERUM 3.8 MMOL/L (3.5-5.3); SODIUM, SERUM 143 MMOL/L (135-148)
[2016-07-20 14:55] LABS: BUN (BLOOD UREA NITROGEN) 34 MG/DL (6-23)
[2016-07-20 16:22] LABS: FIBRINOGEN 244 MG/DL (230-462)
[2016-07-20 19:41] LABS: HEMATOCRIT 31.7 % (36.0-48.0); HEMOGLOBIN 9.8 g/dL (12.0-16.0)
[2016-07-20 19:50] LABS: POTASSIUM, SERUM 4.6 MMOL/L (3.5-5.3)
[2016-07-21 04:22] LABS: BASOPHILS 0 %; EOSINOPHILS 0 %; HEMATOCRIT 31.2 % (36.0-48.0); HEMOGLOBIN 9.4 g/dL (12.0-16.0); IMMATURE GRANULOCYTES 0.6 %; IMMATURE GRANULOCYTES ABSOLUTE 0.13 10/3/uL (0.0-0.11); LYMPHOCYTES 6.4 %; LYMPHOCYTES ABSOLUTE 1.33 10/3/uL (0.67-4.30); MEAN CORPUS HGB CONC 30.1 g/dL (32.0-36.0); MEAN CORPUSCULAR HEMOGLOB 22.9 pg (26.0-34.0); MEAN CORPUSCULAR VOLUME 75.9 fL (80-100); MONOCYTES 1.8 %; MONOCYTES ABSOLUTE 0.38 10/3/uL (0.21-1.20); NEUTROPHILS 91.2 %; NEUTROPHILS ABSOLUTE 18.82 10/3/uL (2.02-8.40); PLATELET COUNT 116 10/3/uL (150-400); RBC DISTRIBUTION WIDTH 18.4 % (12.0-16.0); RED CELL COUNT 4.11 10/6/uL (4.0-5.6)
[2016-07-21 04:23] LABS: MANUAL DIFF NO %; WHITE BLOOD CELLS 20.7 10/3/uL (4.5-10.5)
[2016-07-21 04:27] LABS: BE (BASE EXCESS) 2.7 MEQ/L (0 +/- 2.5); CARBOXYHEMOGLOBIN 0.3 % (0-3); HCO3 (ACTUAL BICARBONATE) 27.4 MEQ/L (23-27); HEMOBLOGIN CONTENT 10.7 G/DL (12-16); INSTRUMENT SERIAL # 11843; METHEMOGLOBIN 0.5 % (0-3); MODE SIMV; PCO2 (CO2 TENSION) 43 MMHG (35-45); PO2 (O2 TENSION) 73 MMHG (79-93); SAMPLE Arterial; TIDAL VOLUME 550 ML; pH 7.42 (7.37-7.43)
[2016-07-21 04:30] LABS: CALCIUM, SERUM 8.4 MG/DL (8.5-10.4); CHLORIDE, SERUM 110 MMOL/L (96-112); CO2 (CARBON DIOXIDE) 27 MMOL/L (24-34); CREATININE 1.22 MG/DL (0.55-1.02); GFR AFRICAN AMERICAN 56 ML/MIN (>=60); GFR NON AFRICAN AMERICAN 48 ML/MIN (>=60); PHOSPHORUS, SERUM 3.6 MG/DL (2.5-4.5); POTASSIUM, SERUM 4.2 MMOL/L (3.5-5.3); SODIUM, SERUM 147 MMOL/L (135-148)
[2016-07-21 04:32] LABS: BUN (BLOOD UREA NITROGEN) 42 MG/DL (6-23); GLUCOSE, SERUM 96 MG/DL (60-99)
[2016-07-21 04:58] LABS: ANISOCYTOSIS 1+ (5-10/OIF) (0-5/OIF); MICROCYTES 1+ (5-10/OIF) (0-5/OIF); PLATELET ESTIMATE SLT DEC (ADEQUATE)
[2016-07-21 05:03] LABS: INTERNATIONAL NORMAL RATI 1.3 UNITS (-)
[2016-07-21 05:04] LABS: PROTIME (NOT ORD) 16.2 SEC (12.0-14.5)
[2016-07-21 17:34] LABS: HEMATOCRIT 31.7 % (36.0-48.0); HEMOGLOBIN 10.1 g/dL (12.0-16.0)
[2016-07-21 17:41] LABS: POTASSIUM, SERUM 3.9 MMOL/L (3.5-5.3)
[2016-07-22 03:47] LABS: BASOPHILS 0.1 %; BASOPHILS ABSOLUTE 0.01 10/3/uL (0.0-0.16); EOSINOPHILS 0 %; HEMATOCRIT 29.9 % (36.0-48.0); HEMOGLOBIN 9.3 g/dL (12.0-16.0); IMMATURE GRANULOCYTES 0.6 %; IMMATURE GRANULOCYTES ABSOLUTE 0.07 10/3/uL (0.0-0.11); MEAN CORPUS HGB CONC 31.1 g/dL (32.0-36.0); MEAN CORPUSCULAR VOLUME 77.1 fL (80-100); MEAN PLATELET VOLUME 11.2 fL (9.2-13.0); MONOCYTES 2.9 %; MONOCYTES ABSOLUTE 0.34 10/3/uL (0.21-1.20); NEUTROPHILS 90.4 %; NEUTROPHILS ABSOLUTE 10.62 10/3/uL (2.02-8.40); PLATELET COUNT 94 10/3/uL (150-400); RED CELL COUNT 3.88 10/6/uL (4.0-5.6)
[2016-07-22 03:53] LABS: MANUAL DIFF NO %; WHITE BLOOD CELLS 11.7 10/3/uL (4.5-10.5)
[2016-07-22 04:04] LABS: ALBUMIN 2.8 G/DL (3.5-5.0); CALCIUM, SERUM 8.6 MG/DL (8.5-10.4); CHLORIDE, SERUM 113 MMOL/L (96-112); CREATININE 0.98 MG/DL (0.55-1.02); GFR AFRICAN AMERICAN 73 ML/MIN (>=60); GFR NON AFRICAN AMERICAN 63 ML/MIN (>=60); GLUCOSE, SERUM 104 MG/DL (60-99); POTASSIUM, SERUM 4.2 MMOL/L (3.5-5.3); SODIUM, SERUM 151 MMOL/L (135-148)
[2016-07-22 04:07] LABS: BUN (BLOOD UREA NITROGEN) 38 MG/DL (6-23); CO2 (CARBON DIOXIDE) 32 MMOL/L (24-34)
[2016-07-22 04:26] LABS: ANISOCYTOSIS 1+ (5-10/OIF) (0-5/OIF); ELLIPTOCYTES 1+ (3-10/OIF) (0-2/OIF); HYPOCHROMIA 1+ (3-10/OIF) (0-2/OIF); PLATELET ESTIMATE DEC (ADEQUATE); TEARDROP SHAPED RBCS OCC (0-2/OIF)
[2016-07-22 17:05] LABS: POTASSIUM, SERUM 4.1 MMOL/L (3.5-5.3)
[2016-07-22 17:14] LABS: BASOPHILS 0 %; EOSINOPHILS 0 %; HEMATOCRIT 29.1 % (36.0-48.0); HEMOGLOBIN 8.8 g/dL (12.0-16.0); IMMATURE GRANULOCYTES 0.7 %; IMMATURE GRANULOCYTES ABSOLUTE 0.09 10/3/uL (0.0-0.11); MEAN CORPUS HGB CONC 30.2 g/dL (32.0-36.0); MEAN CORPUSCULAR HEMOGLOB 23.7 pg (26.0-34.0); MEAN CORPUSCULAR VOLUME 78.2 fL (80-100); MONOCYTES 2.6 %; MONOCYTES ABSOLUTE 0.36 10/3/uL (0.21-1.20); NEUTROPHILS 88.7 %; NEUTROPHILS ABSOLUTE 12.12 10/3/uL (2.02-8.40); PLATELET COUNT 104 10/3/uL (150-400); RBC DISTRIBUTION WIDTH 19.7 % (12.0-16.0); RED CELL COUNT 3.72 10/6/uL (4.0-5.6); WHITE BLOOD CELLS 13.7 10/3/uL (4.5-10.5)
[2016-07-22 17:18] LABS: MANUAL DIFF NO %
[2016-07-22 17:31] LABS: LYMPHOCYTES 6 %; LYMPHOCYTES ABSOLUTE (CALC) 0.82 10/3/uL (0.67-4.30); MONOCYTES 3 %; MONOCYTES ABSOLUTE (CALC) 0.41 10/3/uL (0.21-1.20); NEUTROPHILS ABSOLUTE (CALC) 12.47 10/3/uL (2.02-8.40); SEGMENTED NEUTROPHIL (0) 91 %; TOTAL NUCLEATED CELLS 100
[2016-07-22 17:32] LABS: PLATELET ESTIMATE SLT DEC (ADEQUATE)
[2016-07-22 17:33] LABS: OVALOCYTES 1+ (3-10/OIF) (0-2/OIF)
[2016-07-22 17:34] LABS: ANISOCYTOSIS 1+ (5-10/OIF) (0-5/OIF); HYPOCHROMIA 1+ (3-10/OIF) (0-2/OIF); MICROCYTES 1+ (5-10/OIF) (0-5/OIF)
[2016-07-22 22:53] LABS: HEMATOCRIT 28.3 % (36.0-48.0); HEMOGLOBIN 8.7 g/dL (12.0-16.0)
[2016-07-22 23:04] LABS: BUN (BLOOD UREA NITROGEN) 39 MG/DL (6-23); CALCIUM, SERUM 8.4 MG/DL (8.5-10.4); CHLORIDE, SERUM 112 MMOL/L (96-112); CO2 (CARBON DIOXIDE) 30 MMOL/L (24-34); CREATININE 0.88 MG/DL (0.55-1.02); GFR AFRICAN AMERICAN 83 ML/MIN (>=60); GFR NON AFRICAN AMERICAN 71 ML/MIN (>=60); GLUCOSE, SERUM 97 MG/DL (60-99); POTASSIUM, SERUM 4.1 MMOL/L (3.5-5.3); SODIUM, SERUM 151 MMOL/L (135-148)
[2016-07-23 03:23] LABS: BASOPHILS 0 %; EOSINOPHILS 0 %; HEMATOCRIT 29.1 % (36.0-48.0); HEMOGLOBIN 8.9 g/dL (12.0-16.0); IMMATURE GRANULOCYTES 0.7 %; IMMATURE GRANULOCYTES ABSOLUTE 0.09 10/3/uL (0.0-0.11); LYMPHOCYTES 6.4 %; LYMPHOCYTES ABSOLUTE 0.78 10/3/uL (0.67-4.30); MANUAL DIFF NO %; MEAN CORPUS HGB CONC 30.6 g/dL (32.0-36.0); MEAN CORPUSCULAR VOLUME 78.4 fL (80-100); MEAN PLATELET VOLUME 10.6 fL (9.2-13.0); MONOCYTES 3.8 %; MONOCYTES ABSOLUTE 0.46 10/3/uL (0.21-1.20); NEUTROPHILS 89.1 %; NEUTROPHILS ABSOLUTE 10.86 10/3/uL (2.02-8.40); PLATELET COUNT 117 10/3/uL (150-400); RED CELL COUNT 3.71 10/6/uL (4.0-5.6); WHITE BLOOD CELLS 12.2 10/3/uL (4.5-10.5)
[2016-07-23 03:34] LABS: ALBUMIN 2.6 G/DL (3.5-5.0); BUN (BLOOD UREA NITROGEN) 40 MG/DL (6-23); CALCIUM, SERUM 8.3 MG/DL (8.5-10.4); CHLORIDE, SERUM 112 MMOL/L (96-112); CO2 (CARBON DIOXIDE) 29 MMOL/L (24-34); GFR AFRICAN AMERICAN 81 ML/MIN (>=60); GFR NON AFRICAN AMERICAN 69 ML/MIN (>=60); GLUCOSE, SERUM 97 MG/DL (60-99); PHOSPHORUS, SERUM 3.6 MG/DL (2.5-4.5); POTASSIUM, SERUM 4.1 MMOL/L (3.5-5.3); SODIUM, SERUM 151 MMOL/L (135-148)
[2016-07-23 21:42] LABS: PHOSPHORUS, SERUM 3.5 MG/DL (2.5-4.5); POTASSIUM, SERUM 4.1 MMOL/L (3.5-5.3)
[2016-07-24 05:35] LABS: BASOPHILS 0 %; EOSINOPHILS 0 %; HEMATOCRIT 28.3 % (36.0-48.0); HEMOGLOBIN 8.7 g/dL (12.0-16.0); IMMATURE GRANULOCYTES 0.6 %; IMMATURE GRANULOCYTES ABSOLUTE 0.06 10/3/uL (0.0-0.11); LYMPHOCYTES 4.5 %; LYMPHOCYTES ABSOLUTE 0.42 10/3/uL (0.67-4.30); MANUAL DIFF NO %; MEAN CORPUS HGB CONC 30.7 g/dL (32.0-36.0); MEAN CORPUSCULAR HEMOGLOB 24.4 pg (26.0-34.0); MEAN CORPUSCULAR VOLUME 79.3 fL (80-100); MEAN PLATELET VOLUME 10.9 fL (9.2-13.0); MONOCYTES 5.5 %; MONOCYTES ABSOLUTE 0.51 10/3/uL (0.21-1.20); NEUTROPHILS 89.4 %; NEUTROPHILS ABSOLUTE 8.29 10/3/uL (2.02-8.40); PLATELET COUNT 124 10/3/uL (150-400); RBC DISTRIBUTION WIDTH 20.2 % (12.0-16.0); RED CELL COUNT 3.57 10/6/uL (4.0-5.6); WHITE BLOOD CELLS 9.3 10/3/uL (4.5-10.5)
[2016-07-24 05:40] LABS: ALBUMIN 2.4 G/DL (3.5-5.0); BUN (BLOOD UREA NITROGEN) 40 MG/DL (6-23); CALCIUM, SERUM 8.1 MG/DL (8.5-10.4); CHLORIDE, SERUM 114 MMOL/L (96-112); CO2 (CARBON DIOXIDE) 26 MMOL/L (24-34); CREATININE 0.98 MG/DL (0.55-1.02); GFR AFRICAN AMERICAN 73 ML/MIN (>=60); GFR NON AFRICAN AMERICAN 63 ML/MIN (>=60); PHOSPHORUS, SERUM 3.8 MG/DL (2.5-4.5); POTASSIUM, SERUM 4.1 MMOL/L (3.5-5.3); SODIUM, SERUM 150 MMOL/L (135-148)
[2016-07-24 05:41] LABS: GLUCOSE, SERUM 120 MG/DL (60-99)
[2016-07-24 06:02] LABS: MICROCYTES 1+ (5-10/OIF) (0-5/OIF); PLATELET ESTIMATE SLT DEC (ADEQUATE)
[2016-07-24 06:03] LABS: RBC MORPHOLOGY ABN (NORMAL)
[2016-07-24 08:57] LABS: BE (BASE EXCESS) 2.8 MEQ/L (0 +/- 2.5); CARBOXYHEMOGLOBIN 0.3 % (0-3); HCO3 (ACTUAL BICARBONATE) 26.5 MEQ/L (23-27); HEMOBLOGIN CONTENT 9.8 G/DL (12-16); INSTRUMENT SERIAL # 11843; METHEMOGLOBIN 0.5 % (0-3); O2 CONTENT 13.3 VOL% (18-24); PCO2 (CO2 TENSION) 37 MMHG (35-45); PO2 (O2 TENSION) 92 MMHG (79-93); SAMPLE Arterial; pH 7.47 (7.37-7.43)
[2016-07-24 08:58] LABS: PRESSURE SUPPORT 5 cm.H2O
[2016-07-24 20:32] LABS: SODIUM, URINE 102 MEQ/L
[2016-07-24 20:42] LABS: OSMOLALITY, URINE 648 MOSM/KG (50-1200)
[2016-07-25 03:40] LABS: HEMATOCRIT 31.1 % (36.0-48.0); HEMOGLOBIN 9.6 g/dL (12.0-16.0); MEAN CORPUS HGB CONC 30.9 g/dL (32.0-36.0); MEAN CORPUSCULAR HEMOGLOB 24.3 pg (26.0-34.0); MEAN CORPUSCULAR VOLUME 78.7 fL (80-100); MEAN PLATELET VOLUME 11.1 fL (9.2-13.0); RBC DISTRIBUTION WIDTH 20.3 % (12.0-16.0); RED CELL COUNT 3.95 10/6/uL (4.0-5.6)
[2016-07-25 03:41] LABS: MANUAL DIFF YES %; PLATELET COUNT 171 10/3/uL (150-400); WHITE BLOOD CELLS 22.1 10/3/uL (4.5-10.5)
[2016-07-25 03:55] LABS: A/G RATIO 0.9 (0.7-1.9); ALBUMIN 2.7 G/DL (3.5-5.0); BUN (BLOOD UREA NITROGEN) 38 MG/DL (6-23); CALCIUM, SERUM 8.2 MG/DL (8.5-10.4); CHLORIDE, SERUM 114 MMOL/L (96-112); CO2 (CARBON DIOXIDE) 27 MMOL/L (24-34); CREATININE 0.94 MG/DL (0.55-1.02); GFR AFRICAN AMERICAN 76 ML/MIN (>=60); GFR NON AFRICAN AMERICAN 66 ML/MIN (>=60); GLOBULIN 2.9 G/DL (2.5-4.1); PHOSPHORUS, SERUM 3.7 MG/DL (2.5-4.5); POTASSIUM, SERUM 4.2 MMOL/L (3.5-5.3); SGOT(AST) 68 U/L (5-40); SGPT(ALT) 53 U/L (5-65); SODIUM, SERUM 149 MMOL/L (135-148); TOTAL BILIRUBIN 0.7 MG/DL (0-1.2); TOTAL PROTEIN 5.6 G/DL (6.0-8.5)
[2016-07-25 03:56] LABS: ALKALINE PHOSPHATASE 192 U/L (45-117); GLUCOSE, SERUM 93 MG/DL (60-99)
[2016-07-25 04:37] LABS: BAND NEUTROPHILS 2 %; LYMPHOCYTES 5 %; LYMPHOCYTES ABSOLUTE (CALC) 1.11 10/3/uL (0.67-4.30); MONOCYTES 5 %; MONOCYTES ABSOLUTE (CALC) 1.11 10/3/uL (0.21-1.20); NEUTROPHILS ABSOLUTE (CALC) 19.89 10/3/uL (2.02-8.40); SEGMENTED NEUTROPHIL (0) 88 %; TOTAL NUCLEATED CELLS 100
[2016-07-25 04:38] LABS: ANISOCYTOSIS 1+ (5-10/OIF) (0-5/OIF); ELLIPTOCYTES 1+ (3-10/OIF) (0-2/OIF); PLATELET ESTIMATE ADQ (ADEQUATE)
[2016-07-26 03:35] LABS: BASOPHILS 0.1 %; BASOPHILS ABSOLUTE 0.01 10/3/uL (0.0-0.16); EOSINOPHILS 0.1 %; EOSINOPHILS ABSOLUTE 0.01 10/3/uL (0.0-0.53); HEMATOCRIT 32.3 % (36.0-48.0); HEMOGLOBIN 9.8 g/dL (12.0-16.0); IMMATURE GRANULOCYTES ABSOLUTE 0.15 10/3/uL (0.0-0.11); LYMPHOCYTES 8.5 %; MANUAL DIFF NO %; MEAN CORPUS HGB CONC 30.3 g/dL (32.0-36.0); MEAN CORPUSCULAR HEMOGLOB 24.3 pg (26.0-34.0); MEAN PLATELET VOLUME 10.9 fL (9.2-13.0); MONOCYTES 8.9 %; MONOCYTES ABSOLUTE 1.36 10/3/uL (0.21-1.20); NEUTROPHILS 81.4 %; NEUTROPHILS ABSOLUTE 12.47 10/3/uL (2.02-8.40); PLATELET COUNT 137 10/3/uL (150-400); RBC DISTRIBUTION WIDTH 19.8 % (12.0-16.0); RED CELL COUNT 4.04 10/6/uL (4.0-5.6); WHITE BLOOD CELLS 15.3 10/3/uL (4.5-10.5)
[2016-07-26 03:53] LABS: ANISOCYTOSIS 1+ (5-10/OIF) (0-5/OIF); BAND NEUTROPHILS 2 %; ELLIPTOCYTES 1+ (3-10/OIF) (0-2/OIF); HYPOCHROMIA 1+ (3-10/OIF) (0-2/OIF); IMMATURE GRANS ABSOLUTE (CALC) 0.15 10/3/uL (0.0-0.11); LYMPHOCYTES 3 %; LYMPHOCYTES ABSOLUTE (CALC) 0.46 10/3/uL (0.67-4.30); METAMYELOCYTES 1 %; MONOCYTES 5 %; MONOCYTES ABSOLUTE (CALC) 0.77 10/3/uL (0.21-1.20); NEUTROPHILS ABSOLUTE (CALC) 13.92 10/3/uL (2.02-8.40); PLATELET ESTIMATE SLT DEC (ADEQUATE); SEGMENTED NEUTROPHIL (0) 89 %; TEARDROP SHAPED RBCS FEW (3-10/OIF); TOTAL NUCLEATED CELLS 100
[2016-07-26 04:14] LABS: CHLORIDE, SERUM 111 MMOL/L (96-112); CO2 (CARBON DIOXIDE) 27 MMOL/L (24-34); CREATININE 0.84 MG/DL (0.55-1.02); GFR AFRICAN AMERICAN 88 ML/MIN (>=60); GFR NON AFRICAN AMERICAN 76 ML/MIN (>=60); GLUCOSE, SERUM 99 MG/DL (60-99); PHOSPHORUS, SERUM 3.4 MG/DL (2.5-4.5); POTASSIUM, SERUM 4.1 MMOL/L (3.5-5.3); SODIUM, SERUM 144 MMOL/L (135-148)
[2016-07-26 04:20] LABS: BUN (BLOOD UREA NITROGEN) 29 MG/DL (6-23); FOLATE 3.1 NG/ML (>5.2)
[2016-07-27 06:25] LABS: BASOPHILS 0.1 %; BASOPHILS ABSOLUTE 0.01 10/3/uL (0.0-0.16); EOSINOPHILS 0.1 %; EOSINOPHILS ABSOLUTE 0.02 10/3/uL (0.0-0.53); HEMOGLOBIN 9.9 g/dL (12.0-16.0); IMMATURE GRANULOCYTES ABSOLUTE 0.15 10/3/uL (0.0-0.11); LYMPHOCYTES 11.2 %; LYMPHOCYTES ABSOLUTE 1.73 10/3/uL (0.67-4.30); MEAN CORPUS HGB CONC 30.9 g/dL (32.0-36.0); MEAN CORPUSCULAR HEMOGLOB 24.3 pg (26.0-34.0); MEAN CORPUSCULAR VOLUME 78.4 fL (80-100); MEAN PLATELET VOLUME 11.2 fL (9.2-13.0); MONOCYTES 7.3 %; MONOCYTES ABSOLUTE 1.13 10/3/uL (0.21-1.20); NEUTROPHILS 80.3 %; NEUTROPHILS ABSOLUTE 12.43 10/3/uL (2.02-8.40); PLATELET COUNT 127 10/3/uL (150-400); RBC DISTRIBUTION WIDTH 19.7 % (12.0-16.0); RED CELL COUNT 4.08 10/6/uL (4.0-5.6); WHITE BLOOD CELLS 15.5 10/3/uL (4.5-10.5)
[2016-07-27 06:27] LABS: MANUAL DIFF NO %
[2016-07-27 06:39] LABS: A/G RATIO 0.9 (0.7-1.9); ALBUMIN 2.4 G/DL (3.5-5.0); CHLORIDE, SERUM 105 MMOL/L (96-112); CO2 (CARBON DIOXIDE) 28 MMOL/L (24-34); CREATININE 0.73 MG/DL (0.55-1.02); GFR AFRICAN AMERICAN 104 ML/MIN (>=60); GFR NON AFRICAN AMERICAN 90 ML/MIN (>=60); GLOBULIN 2.6 G/DL (2.5-4.1); GLUCOSE, SERUM 84 MG/DL (60-99); PHOSPHORUS, SERUM 3.1 MG/DL (2.5-4.5); POTASSIUM, SERUM 4.1 MMOL/L (3.5-5.3); SGOT(AST) 28 U/L (5-40); SGPT(ALT) 33 U/L (5-65); SODIUM, SERUM 142 MMOL/L (135-148); TOTAL BILIRUBIN 0.9 MG/DL (0-1.2)
[2016-07-27 06:42] LABS: ALKALINE PHOSPHATASE 132 U/L (45-117); BUN (BLOOD UREA NITROGEN) 18 MG/DL (6-23)
[2016-07-27 07:06] LABS: ANISOCYTOSIS 1+ (5-10/OIF) (0-5/OIF); HYPOCHROMIA 1+ (3-10/OIF) (0-2/OIF); MICROCYTES 1+ (5-10/OIF) (0-5/OIF); PLATELET ESTIMATE SLT DEC (ADEQUATE)
[2016-07-27 16:16] LABS: INTERNATIONAL NORMAL RATI 1.3 UNITS (-); PROTIME (NOT ORD) 15.9 SEC (12.0-14.5)
[2016-07-28 05:54] LABS: A/G RATIO 0.9 (0.7-1.9); ALBUMIN 2.3 G/DL (3.5-5.0); ALKALINE PHOSPHATASE 142 U/L (45-117); BUN (BLOOD UREA NITROGEN) 16 MG/DL (6-23); CALCIUM, SERUM 7.9 MG/DL (8.5-10.4); CHLORIDE, SERUM 104 MMOL/L (96-112); CO2 (CARBON DIOXIDE) 28 MMOL/L (24-34); CREATININE 0.75 MG/DL (0.55-1.02); GFR AFRICAN AMERICAN 100 ML/MIN (>=60); GFR NON AFRICAN AMERICAN 87 ML/MIN (>=60); GLOBULIN 2.6 G/DL (2.5-4.1); GLUCOSE, SERUM 92 MG/DL (60-99); HEMATOCRIT 31.3 % (36.0-48.0); HEMOGLOBIN 9.5 g/dL (12.0-16.0); MEAN CORPUS HGB CONC 30.4 g/dL (32.0-36.0); MEAN CORPUSCULAR HEMOGLOB 23.9 pg (26.0-34.0); MEAN CORPUSCULAR VOLUME 78.8 fL (80-100); MEAN PLATELET VOLUME 10.7 fL (9.2-13.0); PLATELET COUNT 109 10/3/uL (150-400); POTASSIUM, SERUM 3.7 MMOL/L (3.5-5.3); RBC DISTRIBUTION WIDTH 19.7 % (12.0-16.0); RED CELL COUNT 3.97 10/6/uL (4.0-5.6); SGOT(AST) 22 U/L (5-40); SGPT(ALT) 25 U/L (5-65); SODIUM, SERUM 141 MMOL/L (135-148); TOTAL PROTEIN 4.9 G/DL (6.0-8.5)
[2016-07-28 05:57] LABS: MANUAL DIFF YES %
[2016-07-28 05:58] LABS: TOTAL BILIRUBIN 0.4 MG/DL (0-1.2)
[2016-07-28 06:00] LABS: INTERNATIONAL NORMAL RATI 1.2 UNITS (-); PROTIME (NOT ORD) 15.5 SEC (12.0-14.5)
[2016-07-28 07:29] LABS: BAND NEUTROPHILS 10 %; LYMPHOCYTES 12 %; LYMPHOCYTES ABSOLUTE (CALC) 1.92 10/3/uL (0.67-4.30); MONOCYTES 7 %; MONOCYTES ABSOLUTE (CALC) 1.12 10/3/uL (0.21-1.20); NEUTROPHILS ABSOLUTE (CALC) 12.96 10/3/uL (2.02-8.40); PLATELET ESTIMATE SLT DEC (ADEQUATE); SEGMENTED NEUTROPHIL (0) 71 %; TOTAL NUCLEATED CELLS 100
[2016-07-28 07:30] LABS: ANISOCYTOSIS 1+ (5-10/OIF) (0-5/OIF); HYPOCHROMIA 1+ (3-10/OIF) (0-2/OIF); MICROCYTES 1+ (5-10/OIF) (0-5/OIF)
[2016-07-29 05:19] LABS: INTERNATIONAL NORMAL RATI 1.7 UNITS (-)
[2016-07-29 05:21] LABS: PROTIME (NOT ORD) 19.6 SEC (12.0-14.5)
[2016-07-29 05:34] LABS: A/G RATIO 0.8 (0.7-1.9); ALBUMIN 2.3 G/DL (3.5-5.0); ALKALINE PHOSPHATASE 139 U/L (45-117); BUN (BLOOD UREA NITROGEN) 14 MG/DL (6-23); CHLORIDE, SERUM 99 MMOL/L (96-112); CO2 (CARBON DIOXIDE) 30 MMOL/L (24-34); CREATININE 0.79 MG/DL (0.55-1.02); GFR AFRICAN AMERICAN 94 ML/MIN (>=60); GFR NON AFRICAN AMERICAN 81 ML/MIN (>=60); GLOBULIN 2.9 G/DL (2.5-4.1); POTASSIUM, SERUM 3.7 MMOL/L (3.5-5.3); SGOT(AST) 19 U/L (5-40); SGPT(ALT) 26 U/L (5-65); SODIUM, SERUM 139 MMOL/L (135-148); TOTAL BILIRUBIN 0.3 MG/DL (0-1.2); TOTAL PROTEIN 5.2 G/DL (6.0-8.5)
[2016-07-29 05:37] LABS: GLUCOSE, SERUM 112 MG/DL (60-99)
[2016-07-30 05:18] LABS: HEMATOCRIT 28.1 % (36.0-48.0); HEMOGLOBIN 8.9 g/dL (12.0-16.0); MANUAL DIFF YES %; MEAN CORPUS HGB CONC 31.7 g/dL (32.0-36.0); MEAN CORPUSCULAR HEMOGLOB 24.7 pg (26.0-34.0); MEAN CORPUSCULAR VOLUME 77.8 fL (80-100); PLATELET COUNT 124 10/3/uL (150-400); RBC DISTRIBUTION WIDTH 20.3 % (12.0-16.0); RED CELL COUNT 3.61 10/6/uL (4.0-5.6); WHITE BLOOD CELLS 13.8 10/3/uL (4.5-10.5)
[2016-07-30 05:23] LABS: INTERNATIONAL NORMAL RATI 2.7 UNITS (-)
[2016-07-30 05:25] LABS: PROTIME (NOT ORD) 28.2 SEC (12.0-14.5)
[2016-07-30 05:36] LABS: BUN (BLOOD UREA NITROGEN) 13 MG/DL (6-23); CALCIUM, SERUM 8.1 MG/DL (8.5-10.4); CHLORIDE, SERUM 104 MMOL/L (96-112); CO2 (CARBON DIOXIDE) 30 MMOL/L (24-34); GFR AFRICAN AMERICAN 81 ML/MIN (>=60); GFR NON AFRICAN AMERICAN 69 ML/MIN (>=60); GLUCOSE, SERUM 118 MG/DL (60-99); POTASSIUM, SERUM 3.6 MMOL/L (3.5-5.3); SODIUM, SERUM 142 MMOL/L (135-148)
[2016-07-30 05:46] LABS: ANISOCYTOSIS 1+ (5-10/OIF) (0-5/OIF); EOSINOPHILS 2 %; EOSINOPHILS ABSOLUTE (CALC) 0.28 10/3/uL (0.0-0.53); LYMPHOCYTES 8 %; MONOCYTES 5 %; MONOCYTES ABSOLUTE (CALC) 0.69 10/3/uL (0.21-1.20); NEUTROPHILS ABSOLUTE (CALC) 11.73 10/3/uL (2.02-8.40); OVALOCYTES 1+ (3-10/OIF) (0-2/OIF); PLATELET ESTIMATE SLT DEC (ADEQUATE); SEGMENTED NEUTROPHIL (0) 85 %; TEARDROP SHAPED RBCS OCC (0-2/OIF); TOTAL NUCLEATED CELLS 100
[2016-07-30 14:47] LABS: ALPHA-1-ANTITRYPSIN 162 mg/dL (90-200)
[2016-07-31 08:03] LABS: BASOPHILS 0.1 %; BASOPHILS ABSOLUTE 0.01 10/3/uL (0.0-0.16); EOSINOPHILS 2.3 %; EOSINOPHILS ABSOLUTE 0.28 10/3/uL (0.0-0.53); HEMOGLOBIN 9.2 g/dL (12.0-16.0); IMMATURE GRANULOCYTES 0.7 %; IMMATURE GRANULOCYTES ABSOLUTE 0.09 10/3/uL (0.0-0.11); LYMPHOCYTES 15.2 %; LYMPHOCYTES ABSOLUTE 1.84 10/3/uL (0.67-4.30); MANUAL DIFF NO %; MEAN CORPUS HGB CONC 31.7 g/dL (32.0-36.0); MEAN CORPUSCULAR HEMOGLOB 24.9 pg (26.0-34.0); MEAN CORPUSCULAR VOLUME 78.6 fL (80-100); MONOCYTES 7.1 %; MONOCYTES ABSOLUTE 0.86 10/3/uL (0.21-1.20); NEUTROPHILS 74.6 %; NEUTROPHILS ABSOLUTE 9.03 10/3/uL (2.02-8.40); PLATELET COUNT 182 10/3/uL (150-400); RBC DISTRIBUTION WIDTH 20.7 % (12.0-16.0); RED CELL COUNT 3.69 10/6/uL (4.0-5.6); WHITE BLOOD CELLS 12.1 10/3/uL (4.5-10.5)
[2016-07-31 08:09] LABS: PROTIME (NOT ORD) 30.5 SEC (12.0-14.5)
[2016-07-31 08:33] LABS: BUN (BLOOD UREA NITROGEN) 10 MG/DL (6-23); CALCIUM, SERUM 8.4 MG/DL (8.5-10.4); CHLORIDE, SERUM 102 MMOL/L (96-112); CO2 (CARBON DIOXIDE) 30 MMOL/L (24-34); CREATININE 0.83 MG/DL (0.55-1.02); GFR AFRICAN AMERICAN 89 ML/MIN (>=60); GFR NON AFRICAN AMERICAN 77 ML/MIN (>=60); GLUCOSE, SERUM 100 MG/DL (60-99); POTASSIUM, SERUM 3.6 MMOL/L (3.5-5.3); SODIUM, SERUM 140 MMOL/L (135-148)
[2016-09-13] MEDS ORDERED: ASAB PO (13:03)
[2016-09-13] MEDS ORDERED: C5 PO (13:04)
[2016-09-13] MEDS ORDERED: SEROQUEL50 MG PO (13:05)
[2016-09-13] MEDS ORDERED: LOP25 PO (13:05)
[2016-09-13] MEDS ORDERED: FERROUS SULF325 M1 PO (13:06)
[2016-09-13] MEDS ORDERED: VITC500 PO (13:07)
== END 2016-07-31 15:18 | DRG 219 ==
LOC: ER 10:14 → 4SO 13:42 → CCU 07-17 08:52 → CVICU 07-20 13:07 → 5NO 07-26 16:55
PROVIDERS: Emergency Medicine; Internal Medicine; Internal Medicine Critical Care Medicine; Internal Medicine Pulmonary Disease; Nurse Practitioner Family; Thoracic Surgery (Cardiothoracic Vascular Surgery)
DX: I33.0 Acute and subacute infective endocarditis (principal); J96.21 Acute and chronic respiratory failure with hypoxia; I63.9 Cerebral infarction, unspecified; I50.23 Acute on chronic systolic (congestive) heart failure; R57.0 Cardiogenic shock; G93.41 Metabolic encephalopathy; E87.2 Acidosis; N17.9 Acute kidney failure, unspecified; I24.8 Other forms of acute ischemic heart disease; J44.1 Chronic obstructive pulmonary disease with (acute) exacerbation; I82.621 Acute embolism and thrombosis of deep veins of right upper extremity; D64.9 Anemia, unspecified; I73.9 Peripheral vascular disease, unspecified; Z88.6 Allergy status to analgesic agent; Z88.2 Allergy status to sulfonamides; Z99.81 Dependence on supplemental oxygen; I25.10 Atherosclerotic heart disease of native coronary artery without angina pectoris; Z98.890 Other specified postprocedural states; Z87.891 Personal history of nicotine dependence; R00.0 Tachycardia, unspecified; I35.1 Nonrheumatic aortic (valve) insufficiency; I37.1 Nonrheumatic pulmonary valve insufficiency; I36.1 Nonrheumatic tricuspid (valve) insufficiency; I11.0 Hypertensive heart disease with heart failure; B95.2 Enterococcus as the cause of diseases classified elsewhere; F41.1 Generalized anxiety disorder
CPT/HCPCS: 31720; 36415; 36569; 36600; 70450; 70551; 71010; 71020; 71275; 74000; 74176; 76775; 80048; 80053; 80061; 80069; 81001; 82103; 82104; 82140; 82248; 82330; 82550; 82553; 82570; 82607; 82728; 82746; 82803; 82805; 82947; 82962; 83010; 83036; 83540; 83550; 83605; 83615; 83735; 83880; 83935; 84100; 84132; 84134; 84145; 84295; 84300; 84443; 84484; 85014; 85018; 85025; 85045; 85049; 85347; 85384; 85390; 85576; 85610; 85730; 86850; 86880; 86900; 86901; 86920; 86965; 87015; 87040; 87070; 87075; 87077; 87102; 87116; 87150; 87186; 87205; 87449; 87493; 87493-59; 87641; 88305; 88311; 88312; 90471; 92610-GN; 93005; 93312; 93320; 93325; 93880; 93971; 94002; 94003; 94640; 94660; 94770; 96374; 97110-GP; 97116-GP; 97162-GP; 97166-GO; 97530-GP; 99291; A9270-GY; C1713; C1725; C1751; C1769; C8929; C9113; C9132; J0290; J0360; J0690; J0878; J1120; J1644; J1940; J1956; J2150; J2370; J2405; J2440; J2720; J2920; J2930; J3010; J3370; P9012; P9016; P9035; P9045; P9059; Q9957; Q9967

== ENCOUNTER 2016-09-18 09:34 | Day surgery (SDC) | payer BC ==
--- NOTE | ~2016-09-18 | EGD ---
EGD REPORT [facility] [address] [address] NAME: NABILA SCANLON : 57 STATUS : REG [facility] PAT#: [id number] AGE: 61 ADM/REG DATE : 09/18/16 MR#: [id number] REPORT SERV DATE: 09/18/16 DICTATED BY: FORTUNATO LANDON DATE: 09/18/16 REPORT STATUS : Draft TRANSCRIBED BY: [employer] DATE: 09/18/16 [facility] Patient Name: Nabila Scanlon Date of : 1955 Attending MD: FORTUNATO LANDON, Procedure Date No Time: 09/18/2016 Procedure: Colonoscopy Indications: Iron deficiency anemia secondary to chronic blood loss Referring MD: MARIAM FRY MD Medicines: Monitored Anesthesia Care Complications: No immediate complications. Estimated blood loss: None. Procedure: After I obtained informed consent, the scope was passed under direct vision. Throughout the procedure, the patient's blood pressure, pulse, and oxygen saturations were monitored continuously. The CF [id number] was introduced through the anus and advanced to the cecum, identified by appendiceal orifice and ileocecal valve. The colonoscopy was performed without difficulty. The patient tolerated the procedure well. Findings: The perianal and digital rectal examinations were normal. Internal hemorrhoids were found, and they were Grade II (internal hemorrhoids that prolapse but reduce spontaneously). Many small-mouthed diverticula were found in the sigmoid colon. A sessile polyp was found in the sigmoid colon. The polyp was 3 mm in size. The polyp was removed with a cold biopsy forceps. Resection and retrieval were complete. Verification of patient identification for the specimen was done. Estimated blood loss was minimal. The exam was otherwise without abnormality. Impression: - Internal hemorrhoids. - Diverticulosis in the sigmoid colon. - One 3 mm polyp in the sigmoid colon. Resected and retrieved. - The examination was otherwise normal. Recommendation: - Patient has a contact number available for emergencies. The signs and symptoms of potential delayed complications were discussed with the patient. Return to normal activities tomorrow. Written discharge instructions were provided to the patient. - Return to previous diet. - Continue present medications. - Await pathology results. EGD REPORT [address] [id number] NAME: NABILA SCANLON : [birth year] STATUS : REG [facility] [place] PAT#: [id number] AGE: 61 ADM/REG DATE : 09/18/16 MR#: [id number] REPORT SERV DATE: 09/18/16 DICTATED BY: FORTUNATO LANDON DATE: 09/18/16 REPORT STATUS : Draft TRANSCRIBED BY: [employer] DATE: 09/18/16 - Repeat colonoscopy for surveillance based on pathology results. - Resume Coumadin (warfarin) at prior dose today. - Return to GI office in 4 weeks. Procedure Code(s): --- Professional --- 07642, Colonoscopy, flexible, proximal to splenic flexure; with biopsy, single or multiple Diagnosis Code(s): --- Professional --- K64.1, Second degree hemorrhoids K57.30, Diverticulosis of large intestine without perforation or abscess without bleeding D12.5, Benign neoplasm of sigmoid colon D50.0, Iron deficiency anemia secondary to blood loss (chronic) CPT copyright 2013 [employer]. All rights reserved. The codes documented in this report are preliminary and upon statistics intern review may be revised to meet current compliance requirements. FORTUNATO LANDON, 09/18/2016 12:39 PM Number of Addenda: 0 Note Initiated On: 09/18/2016 12:14 PM Scope Withdrawal Time 0 hours 9 minutes 22 seconds [address] [id number]
[~2016-09-18 09:34] MED LIST changes: +ASAB PO; +BROVANA15 MCG INH; +C5 PO; +DUONEB INH; +FERROUS SULF325 M1 PO; +LOP25 PO; +PULRESP.5 INH; +SEROQUEL50 MG PO; +VITC500 PO
[2016-09-18 10:21] LABS: INTERNATIONAL NORMAL RATI 1.1 UNITS (-)
[2016-09-18 10:24] LABS: PROTIME (NOT ORD) 14.4 SEC (12.0-14.5)
== END 2016-09-18 23:59 | disposition home or self-care (01) ==
LOC: DMU 09:34
PROVIDERS: Anesthesiology; Internal Medicine Gastroenterology
PROC: 0DBN8ZZ Excision of Sigmoid Colon, Via Natural or Artificial Opening Endoscopic (ICD-10-PCS; principal; 2016-09-18 12:00)
DX: K63.5 Polyp of colon (principal); K64.1 Second degree hemorrhoids; K57.30 Diverticulosis of large intestine without perforation or abscess without bleeding; D50.0 Iron deficiency anemia secondary to blood loss (chronic); J44.9 Chronic obstructive pulmonary disease, unspecified; G45.9 Transient cerebral ischemic attack, unspecified; I10 Essential (primary) hypertension; Z79.01 Long term (current) use of anticoagulants; Z79.899 Other long term (current) drug therapy; Z79.82 Long term (current) use of aspirin
CPT/HCPCS: 85610; 88305